=== PATIENT | male | born 1955 | race Two or more races ===

== ENCOUNTER 2016-10-10 16:11 | Emergency (ER) | payer BC, OTHER ==
[2016-10-10] MEDS ORDERED: MORPHINE 4 MG/ML 1ML SYRINGE As Ordered ONE ×3 (16:58→20:16)
[2016-10-10] MEDS ORDERED: KETOROLAC 30 MG/ML VIAL (J1885) As Ordered ONE (16:58)
--- NOTE | 2016-10-10 20:20 | REPUSA ---
CLINICAL HISTORY: Back pain. TECHNIQUE: Fast spin echo T2 and spin echo T1 sequences were obtained in axial and sagittal planes. FINDINGS: The visualized osseous elements are intact with no evidence of fracture or spondylolisthesis. The marrow signal is within normal limits. The conus medullaris and cauda equina are within normal li mits. Straightening of lumbar lordosis is seen, suggesting muscular spasm. Desiccation noted at L3-S1 . Evaluation of individual levels reveals the following: At L5-S1 broad-based posterior disc bulge producing mild mass effect on the ventral sac. Neural marcie talib are mildly narrowed. Canal is borderline stenotic. At L4-L5, an annular tear is noted, with mild broad-based disc bulge producing mild mass effect on th e ventral sac. Neural foramina are mildly narrowed. Canal is patent. Remaining levels demonstrate no significant disc bulge or herniation. IMPRESSION: 1. Straightening of lumbar lordosis, suggesting muscular spasm. 2. At L5-S1 broad-based posterior disc bulge producing mild mass effect on the ventral sac. Neural fo ramina are mildly narrowed. Canal is borderline stenotic. 3. At L4-L5, an annular tear is noted, with mild broad-based disc bulge producing mild mass effect on the ventral sac. Neural foramina are mildly narrowed. Canal is patent Thank you for your kind referral of this patient.
[2016-10-10] MEDS ORDERED: NORCO 5/325MG TABLET (BULK) As Ordered ONE (21:01)
--- NOTE | 2016-10-10 21:21 | EDDOCDS ---
Nurse's Notes [facility] Name: Didier Tinoco Age: 61 yrs Sex: Male : 1955 Arrival Date: 10/10/2016 Time: 16:11 Bed 18 Private MD: Dave Lara Diagnosis: Low back pain-with radicular pain Presentation: 10/10 16:18 Presenting complaint: EMS states: history of lumbar disc, pain has increased. Pain into kr3 left leg. Seen by PCP during past week. Acute neurological deficits are not present. Mechanism of Injury: No Mechanism of Injury. Adult Sepsis Screening: The patient does not have new or worsening altered mentation. Patient's respiratory rate is less than 22. Systolic blood pressure is greater than 100. Patient has a qSOFA score of 0- Negative Sepsis Screen. Suicide/Homicide risk assessment- the patient denies having any suicidal and/or homicidal ideations and does not present with any other emotional, behavioral or mental health complaints. Status: Patient is not a pest control service technician or dependent. Transition of care: patient was not received from another setting of care. 16:18 Method Of Arrival: Ambulance kr3 16:18 Acuity: CAMI Level 4 kr3 17:31 Acuity level changed due to complexity of care. jf3 17:31 Acuity: CAMI Level 3 jf3 Triage Assessment: 16:26 General: Appears in no apparent distress, comfortable, Behavior is cooperative. Pain: kr3 Location: left low back into left hip and left leg Pain currently is 6 out of 10 on a pain scale. The patient is triaged at the bedside. See Assessment in Nurses Notes section of ED record. Respiratory: Respiratory effort is even, unlabored. : Denies incontinence. Derm: Skin is normal. Musculoskeletal: Reports unable to weight bear left leg since this AM. 21:18 Pt Declines HIV testing. jf3 Historical: - Allergies: PENICILLINS; - Home Meds: 1. metformin 850 mg oral tab 2 times per day 2. metoprolol tartrate 50 mg Oral tab once daily 3. atorvastatin 20 mg oral tab 1 tab once daily 4. levothyroxine 25 mcg Oral cap 1 cap once daily 5. Vitamin D Oral 2000 units daily 6. multivitamin Oral tab daily 7. hydrocodone-acetaminophen 5-325 mg Oral tab as needed 8. Aleve Unknown Oral as needed - PMHx: Hypertension; Diabetes - NIDDM: controlled; Thyroid problem; Chronic Low Back Pain; - PSHx: nose surgery; - Social history: Smoking status: Patient states was never smoker of tobacco. No barriers to communication noted, The patient speaks fluent Korean, Speaks appropriately for age. - Family history: Not pertinent. - : The pt / caregiver states he / she is not on anticoagulants. Home medication list is obtained from the patient. - Exposure Risk Screening:: None identified. Screenin:00 Screening information is obtained from the patient. Fall risk: No risks identified. jf3 Assistance ADL's: requires no assistance with activities of daily living. Abuse/DV Screen: The patient / caregiver reports he/she is: not in a situation that causes fear, pain or injury. Nutritional screening: No deficits noted. Advance Directives: There is no active DNR order. home support is adequate. Assessment: 17:00 Adult Sepsis Screening: The patient does not have new or worsening altered mentation. jf3 Patient's respiratory rate is less than 22. Systolic blood pressure is greater than 100. Patient has a qSOFA score of 0- Negative Sepsis Screen. General: Appears uncomfortable, Behavior is cooperative. Pain: Location: left hip, back, buttocks and left leg Pain currently is 6 out of 10 on a pain scale. Neurological: Level of Consciousness is awake, alert, Oriented to person, place, time. Cardiovascular: Capillary refill < 3 seconds Heart tones S1 S2 present Chest pain is denied. Respiratory: Airway is patent Respiratory effort is even, unlabored, Respiratory pattern is regular, symmetrical, Breath sounds are clear bilaterally. Denies shortness of breath. GI: Abdomen is non- distended Bowel sounds present X 4 quads. Abd is soft and non tender X 4 quads. : Denies inability to void, incontinence, urinary frequency, urgency. Derm: Skin is pink, warm & dry. 18:00 General: Appears in no apparent distress, comfortable, Behavior is cooperative. jf3 General: Respirations easy and unlabored. Call light in reach. Will continue to monitor. Pain: Pain currently is 3 out of 10 on a pain scale. 19:00 General: Appears in no apparent distress, comfortable, Behavior is cooperative. jf3 General: Resting supine on stretcher. respirations easy and unlabored. Will continue to monitor. Pain: Pain currently is 2 out of 10 on a pain scale. 20:00 General: Appears in no apparent distress, comfortable, Behavior is cooperative, Pt jf3 resting supine on stretcher. Respirations easy and unlabored. Will continue to monitor. 21:16 Adult Sepsis Screening: The patient does not have new or worsening altered mentation. jf3 Patient's respiratory rate is less than 22. Systolic blood pressure is greater than 100. Patient has a qSOFA score of 0- Negative Sepsis Screen. General: Appears in no apparent distress, comfortable, Behavior is cooperative. General: Pt states pain is 0/10 after latest dose of pain medication. Pain: Pain currently is 0 out of 10 on a pain scale. Neurological: Level of Consciousness is awake, alert, Oriented to person, place, time. Cardiovascular: Capillary refill < 3 seconds Chest pain is denied. Respiratory: Airway is patent Respiratory effort is even, unlabored, Respiratory pattern is regular, symmetrical. Derm: Skin is pink, warm & dry. Vital Signs: 16:24 BP 157 / 64; Pulse 83; Resp 20; Temp 98.6(O); Pulse Ox 95% on R/A; Weight 108.86 kg jmv (R); Height 5 ft. 10 in. (177.80 cm) (R); Pain 6/10; 16:52 BP 162 / 83 (auto/); jf3 16:53 Pulse 78 MON; Pulse Ox 94% ; jf3 17:07 BP 160 / 86 (auto/); jf3 17:07 Pulse 78 MON; Pulse Ox 95% ; jf3 17:22 BP 140 / 63 (auto/); jf3 17:22 Pulse 76 MON; Pulse Ox 94% ; jf3 17:37 BP 136 / 64 (auto/); jf3 17:37 Pulse 76 MON; Pulse Ox 95% ; jf3 17:52 BP 137 / 69 (auto/); jf3 17:52 Pulse 72 MON; Pulse Ox 95% ; jf3 17:55 BP 140 / 66 (auto/); jf3 17:55 Pulse 72 MON; Pulse Ox 96% ; jf3 17:58 BP 140 / 66; Pulse 75; Resp 16; Pulse Ox 96% on 2 lpm NC; Pain 3/10; jf3 18:07 BP 142 / 71 (auto/); jf3 18:07 Pulse 72 MON; Pulse Ox 96% ; jf3 18:21 Pulse 72 MON; Pulse Ox 95% ; jf3 18:22 BP 137 / 68 (auto/); jf3 20:36 BP 126 / 64; Pulse 76; Resp 18; Temp 98.4(TE); Pulse Ox 96% on R/A; Pain 0/10; layla 16:24 Body Mass Index 34.44 (108.86 kg, 177.80 cm) jmv 16:24 PT states that when he is not moving his pain is a 6/10. when he moves and or sits up jmv he is a 10/10 on the pain scale ED Course: 16:12 Patient visited by Agnes Lombardi PCA. ar3 16:12 Dave Lara is Private Physician. ar3 16:12 Patient moved to Waiting ar3 16:12 Patient moved to 18 ar3 16:19 Triage Initiated kr3 16:26 Patient visited by lAex Solomon PCA. jmv 16:26 Pt greeted and oriented to ED. Patient advised of names of staff involved in care, [facility] location of call love, wait times and NPO status. Accompanied by Significant Other, Patient has correct armband on for positive identification. Placed in gown. Bed in low position. Call light in reach. Side rails up X2. Pulse ox on. NIBP on. 16:33 Olivia Munson MD is Attending Physician. sd1 16:33 Patient visited by Olivia Munson MD. sd1 17:00 The patient / caregiver is instructed regarding the plan of care and ED course. jf3 17:00 Inserted saline lock: 20 gauge in left antecubital area The patient tolerated the jf3 procedure well. No procedures done that require assistance. 17:06 [facility] Payment Agreement was scanned into [employer] and attached to record. gjb 17:30 Patient visited by Umer Kirkland RN. jf3 18:33 Patient moved to MRI ld5 18:56 Patient visited by Umer Kirkland RN. jf3 19:13 Attending Physician role handed off by Olivia Munson MD cs11 19:13 Dylon Ballard DO is Attending Physician. cs11 19:14 Patient moved to 18 ml3 19:28 Patient visited by Umer Kirkland RN. jf3 20:31 Patient visited by Alicia Kyle PCA. layla 20:33 Elio Westfall is Referral Physician. cs11 20:33 Referral Physician role handed off by Elio Westfall cs11 20:33 Garo French is Referral Physician. cs11 20:36 Patient visited by Alicia Kyle PCA. layla 20:36 -MRI-Spine, Lumbar without contrast Returned. EDMS 21:16 Discontinued IV lock intact, bleeding controlled, pressure dressing applied, No jf3 redness/swelling at site. Administered Medications: 17:07 Drug: ketorolac 30 mg [ketorolac 30 mg/mL (1 mL) injection solution (1 mL)] Route: IVP; jf3 Site: left antecubital; 17:58 Follow up: Response: Pain is decreased jf3 17:11 Drug: Diazepam 5 mg [diazepam 5 mg/mL injection syringe (1 mL)] Route: IVP; Site: left jf3 antecubital; 17:58 Follow up: Response: Pain is decreased jf3 17:16 Drug: morphine 4 mg [morphine 4 mg/mL intravenous cartridge (1 mL)] Route: IVP; Site: jf3 left antecubital; 17:58 Follow up: BP 140 / 66; Pulse 75 bpm; Resp 16 bpm; Pulse Ox 96% 2 lpm Nasal Cannula; jf3 Pain 3/10 Adult 18:06 Drug: morphine 4 mg [morphine 4 mg/mL intravenous cartridge (1 mL)] Route: IVP; Site: jf3 left antecubital; 20:19 Drug: morphine 4 mg [morphine 4 mg/mL intravenous cartridge (1 mL)] Route: IVP; Site: jf3 left antecubital; 21:20 Follow up: Response: Pain is decreased jf3 21:19 Drug: HYDROcodone-acetaminophen 4 pack- 1 packets [hydrocodone 5 mg-acetaminophen 325 jf3 mg tablet (1 tabs)] {Co-Signature: mb9 (Jeremiah Terry RN).} {Note: Dispensed home with pt by physician..} Route: PO; Order Results: Radiology Order: -MRI-Spine, Lumbar without contrast Test: -MRI-Spine, Lumbar without contrast REASON FOR EXAMINATION: pain radicular left leg paresthesia; ; CLINICAL HISTORY: Back pain.; TECHNIQUE: Fast spin echo T2 and spin echo T1 sequences were obtained in axial and sagittal planes.; FINDINGS:; The visualized osseous elements are intact with no evidence of fracture or spondylolisthesis.; The marrow signal is within normal limits. The conus medullaris and cauda equina are within normal li; mits. Straightening of lumbar lordosis is seen, suggesting muscular spasm. Desiccation noted at L3-S1; .; Evaluation of individual levels reveals the following:; At L5-S1 broad-based posterior disc bulge producing mild mass effect on the ventral sac. Neural marcie; talib are mildly narrowed. Canal is borderline stenotic.; At L4-L5, an annular tear is noted, with mild broad-based disc bulge producing mild mass effect on th; e ventral sac. Neural foramina are mildly narrowed. Canal is patent.; Remaining levels demonstrate no significant disc bulge or herniation.; IMPRESSION:; 1. Straightening of lumbar lordosis, suggesting muscular spasm.; 2. At L5-S1 broad-based posterior disc bulge producing mild mass effect on the ventral sac. Neural fo; ramina are mildly narrowed. Canal is borderline stenotic.; 3. At L4-L5, an annular tear is noted, with mild broad-based disc bulge producing mild mass effect on; the ventral sac. Neural foramina are mildly narrowed. Canal is patent; Thank you for your kind referral of this patient.; ; Outcome: 20:33 Discharge ordered by Provider. cs11 21:16 Discharge Assessment: Patient awake, alert and oriented x 3. No cognitive and/or jf3 functional deficits noted. Patient verbalized understanding of disposition instructions. patient administered narcotics - yes. Pt provided with safe discharge. The following High Risk Discharge criteria are identified: None. Discharged to home via wheelchair, with significant other. Condition: good. Discharge instructions given to patient, significant other, Instructed on discharge instructions, follow up and referral plans. medication usage, no driving heavy equipment, Demonstrated understanding of instructions, medications, Pt was receptive of discharge instructions/ teaching. MRI Study completed. Property :Personal belongings accompany Pt. 21:20 Patient left the ED. jf3 Signatures: Dispatcher [employer] EDOlivia Reeder MD MD sd1 Mk Ryan, Customer Retention Specialist Unit ml3 Jaimie Smith RN RN kr3 Agnes Lombardi HELICOPTER DISPATCHER HELICOPTER DISPATCHER ar3 Kymberly Lennon,RN RN ld5 Saroj, Alicia, HELICOPTER DISPATCHER HELICOPTER DISPATCHER layla Dylon Ballard, DO DO cs11 Umer Kirkland,RN RN jf3 Patti Cooney Jose, HELICOPTER DISPATCHER HELICOPTER DISPATCHER jmv Jeremiah Terry RN mb9 Corrections: (The following items were deleted from the chart) 17:58 17:57 BP 140 / 66; Pulse 75 bpm; Resp 16 bpm; Pulse Ox 96% 2 lpm Nasal Cannula jf3 jf3 MTDD
--- NOTE | 2016-10-10 21:21 | EDDOCDS ---
Physician Documentation [facility] Name: Didier Tinoco Age: 61 yrs Sex: Male : 1955 Arrival Date: 10/10/2016 Time: 16:11 Bed 18 Private MD: Dave Lara Disposition: 10/10/16 20:33 Discharged to Home/Self Care. Impression: Low back pain - with radicular pain. - Condition is Stable. - Discharge Instructions: Back Pain, Adult, Back Pain, Adult, [id number]. - Prescriptions for ketorolac 10 mg Oral Tablet - take 1 tablet by ORAL route every 6 hours As needed MDD- 40mg. Up to 5 days total use.; 9 tablet. Valium 5 mg Oral Tablet - take 1 tablet by ORAL route every 8 hours As needed MDD: 3 tabs; 20 tablet. Percocet 5- 325 mg Oral Tablet - take 1 tablet by ORAL route every 6 hours As needed MDD: 4 tabs; 20 tablet. - Medication Reconciliation, Local Pharmacy Hours form. - Follow up: ; When: Call to arrange an appointment. Follow up: Garo French; When: Call to arrange an appointment; Reason: Recheck today's complaints. - Problem is an ongoing problem. - Symptoms have improved. Historical: - Allergies: PENICILLINS; - Home Meds: 1. metformin 850 mg oral tab 2 times per day 2. metoprolol tartrate 50 mg Oral tab once daily 3. atorvastatin 20 mg oral tab 1 tab once daily 4. levothyroxine 25 mcg Oral cap 1 cap once daily 5. Vitamin D Oral 2000 units daily 6. multivitamin Oral tab daily 7. hydrocodone-acetaminophen 5-325 mg Oral tab as needed 8. Aleve Unknown Oral as needed - PMHx: Hypertension; Diabetes - NIDDM: controlled; Thyroid problem; Chronic Low Back Pain; - PSHx: nose surgery; - Social history: Smoking status: Patient states was never smoker of tobacco. No barriers to communication noted, The patient speaks fluent Anguillan, Speaks appropriately for age. - Family history: Not pertinent. - : The pt / caregiver states he / she is not on anticoagulants. Home medication list is obtained from the patient. - Exposure Risk Screening:: None identified. Vital Signs: 10/10 16:24 BP 157 / 64; Pulse 83; Resp 20; Temp 98.6(O); Pulse Ox 95% on R/A; Weight 108.86 kg / jmv 240 lbs (R); Height 5 ft. 10 in. (177.80 cm) (R); Pain 6/10; 16:52 BP 162 / 83 (auto/); jf3 16:53 Pulse 78 MON; Pulse Ox 94% ; jf3 17:07 BP 160 / 86 (auto/); jf3 17:07 Pulse 78 MON; Pulse Ox 95% ; jf3 17:22 BP 140 / 63 (auto/); jf3 17:22 Pulse 76 MON; Pulse Ox 94% ; jf3 17:37 BP 136 / 64 (auto/); jf3 17:37 Pulse 76 MON; Pulse Ox 95% ; jf3 17:52 BP 137 / 69 (auto/); jf3 17:52 Pulse 72 MON; Pulse Ox 95% ; jf3 17:55 BP 140 / 66 (auto/); jf3 17:55 Pulse 72 MON; Pulse Ox 96% ; jf3 17:58 BP 140 / 66; Pulse 75; Resp 16; Pulse Ox 96% on 2 lpm NC; Pain 3/10; jf3 18:07 BP 142 / 71 (auto/); jf3 18:07 Pulse 72 MON; Pulse Ox 96% ; jf3 18:21 Pulse 72 MON; Pulse Ox 95% ; jf3 18:22 BP 137 / 68 (auto/); jf3 20:36 BP 126 / 64; Pulse 76; Resp 18; Temp 98.4(TE); Pulse Ox 96% on R/A; Pain 0/10; layla 16:24 Body Mass Index 34.44 (108.86 kg, 177.80 cm) jmv 16:24 PT states that when he is not moving his pain is a 6/10. when he moves and or sits up [facility] he is a 10/10 on the pain scale MDM: 16:34 Financial registration complete. gjb 16:47 ketorolac 30 mg IVP once ordered. sd1 16:47 Diazepam 5 mg IVP once ordered. sd1 16:48 morphine 4 mg IVP every 15 minutes; Document pain score/vitals after each dose (Hold if sd1 SBP < 90mmHg) x2 ordered. 16:48 IV Saline Lock ordered. sd1 16:48 MRI Screening Tool - Place on chart, inform RN ordered. sd1 16:50 -MRI-Spine, Lumbar without contrast Ordered. EDMS 17:06 [facility] Payment Agreement was scanned into [employer] and attached to record. ellen 17:29 MRI Screening Tool - Place on chart, inform RN complete. jf3 20:12 morphine 4 mg IVP once ordered. cs11 20:39 HYDROcodone-acetaminophen 4 pack- 5 mg-325 mg 1 packets PO Per package directions; cs11 Dispense with patient. 1 po q4h prn for pain ordered. Administered Medications: 17:07 Drug: ketorolac 30 mg [ketorolac 30 mg/mL (1 mL) injection solution (1 mL)] Route: IVP; jf3 Site: left antecubital; 17:58 Follow up: Response: Pain is decreased jf3 17:11 Drug: Diazepam 5 mg [diazepam 5 mg/mL injection syringe (1 mL)] Route: IVP; Site: left jf3 antecubital; 17:58 Follow up: Response: Pain is decreased jf3 17:16 Drug: morphine 4 mg [morphine 4 mg/mL intravenous cartridge (1 mL)] Route: IVP; Site: 3 left antecubital; 17:58 Follow up: BP 140 / 66; Pulse 75 bpm; Resp 16 bpm; Pulse Ox 96% 2 lpm Nasal Cannula; jf3 Pain 3/10 Adult 18:06 Drug: morphine 4 mg [morphine 4 mg/mL intravenous cartridge (1 mL)] Route: IVP; Site: 3 left antecubital; 20:19 Drug: morphine 4 mg [morphine 4 mg/mL intravenous cartridge (1 mL)] Route: IVP; Site: 3 left antecubital; 21:20 Follow up: Response: Pain is decreased jf3 21:19 Drug: HYDROcodone-acetaminophen 4 pack- 1 packets [hydrocodone 5 mg-acetaminophen 325 jf3 mg tablet (1 tabs)] {Co-Signature: mb9 (Jeremiah Terry RN).} {Note: Dispensed home with pt by physician..} Route: PO; Signatures: Dispatcher [employer] EDMS Olivia Munson MD MD sd1 Jaimie Smith RN RN shayy3 Dylon Ballard DO DO cs11 Umer Kirkland RN RN jf3 Patti Cooney RN mb9 The chart was reviewed and I authenticate all verbal orders and agree with the evaluation and treatment provided.Attachments: 17:06 [facility] Payment Agreement ellen MTDD
--- NOTE | 2016-10-12 22:21 | EDDOCDS ---
Physician Documentation [facility] Name: Didier Tinoco Age: 61 yrs Sex: Male : 1955 Arrival Date: 10/10/2016 Time: 16:11 Bed 18 Private MD: Dave Lara Disposition: 10/10/16 20:33 Discharged to Home/Self Care. Impression: Low back pain - with radicular pain. - Condition is Stable. - Discharge Instructions: Back Pain, Adult, Back Pain, Adult, [id number]. - Prescriptions for ketorolac 10 mg Oral Tablet - take 1 tablet by ORAL route every 6 hours As needed MDD- 40mg. Up to 5 days total use.; 9 tablet. Valium 5 mg Oral Tablet - take 1 tablet by ORAL route every 8 hours As needed MDD: 3 tabs; 20 tablet. Percocet 5- 325 mg Oral Tablet - take 1 tablet by ORAL route every 6 hours As needed MDD: 4 tabs; 20 tablet. - Medication Reconciliation, Local Pharmacy Hours form. - Follow up: ; When: Call to arrange an appointment. Follow up: Garo French; When: Call to arrange an appointment; Reason: Recheck today's complaints. - Problem is an ongoing problem. - Symptoms have improved. Historical: - Allergies: PENICILLINS; - Home Meds: 1. metformin 850 mg oral tab 2 times per day 2. metoprolol tartrate 50 mg Oral tab once daily 3. atorvastatin 20 mg oral tab 1 tab once daily 4. levothyroxine 25 mcg Oral cap 1 cap once daily 5. Vitamin D Oral 2000 units daily 6. multivitamin Oral tab daily 7. hydrocodone-acetaminophen 5-325 mg Oral tab as needed 8. Aleve Unknown Oral as needed - PMHx: Hypertension; Diabetes - NIDDM: controlled; Thyroid problem; Chronic Low Back Pain; - PSHx: nose surgery; - Social history: Smoking status: Patient states was never smoker of tobacco. No barriers to communication noted, The patient speaks fluent Cymraes, Speaks appropriately for age. - Family history: Not pertinent. - : The pt / caregiver states he / she is not on anticoagulants. Home medication list is obtained from the patient. - Exposure Risk Screening:: None identified. Vital Signs: 10/10 16:24 BP 157 / 64; Pulse 83; Resp 20; Temp 98.6(O); Pulse Ox 95% on R/A; Weight 108.86 kg / jmv 240 lbs (R); Height 5 ft. 10 in. (177.80 cm) (R); Pain 6/10; 16:52 BP 162 / 83 (auto/); jf3 16:53 Pulse 78 MON; Pulse Ox 94% ; jf3 17:07 BP 160 / 86 (auto/); jf3 17:07 Pulse 78 MON; Pulse Ox 95% ; jf3 17:22 BP 140 / 63 (auto/); jf3 17:22 Pulse 76 MON; Pulse Ox 94% ; jf3 17:37 BP 136 / 64 (auto/); jf3 17:37 Pulse 76 MON; Pulse Ox 95% ; jf3 17:52 BP 137 / 69 (auto/); jf3 17:52 Pulse 72 MON; Pulse Ox 95% ; jf3 17:55 BP 140 / 66 (auto/); jf3 17:55 Pulse 72 MON; Pulse Ox 96% ; jf3 17:58 BP 140 / 66; Pulse 75; Resp 16; Pulse Ox 96% on 2 lpm NC; Pain 3/10; jf3 18:07 BP 142 / 71 (auto/); jf3 18:07 Pulse 72 MON; Pulse Ox 96% ; jf3 18:21 Pulse 72 MON; Pulse Ox 95% ; jf3 18:22 BP 137 / 68 (auto/); jf3 20:36 BP 126 / 64; Pulse 76; Resp 18; Temp 98.4(TE); Pulse Ox 96% on R/A; Pain 0/10; layla 16:24 Body Mass Index 34.44 (108.86 kg, 177.80 cm) jmv 16:24 PT states that when he is not moving his pain is a 6/10. when he moves and or sits up [facility] he is a 10/10 on the pain scale MDM: 16:34 Financial registration complete. gjb 16:47 ketorolac 30 mg IVP once ordered. sd1 16:47 Diazepam 5 mg IVP once ordered. sd1 16:48 morphine 4 mg IVP every 15 minutes; Document pain score/vitals after each dose (Hold if sd1 SBP < 90mmHg) x2 ordered. 16:48 IV Saline Lock ordered. sd1 16:48 MRI Screening Tool - Place on chart, inform RN ordered. sd1 16:50 -MRI-Spine, Lumbar without contrast Ordered. EDMS 17:06 [facility] Payment Agreement was scanned into [employer] and attached to record. gjb 17:29 MRI Screening Tool - Place on chart, inform RN complete. jf3 20:12 morphine 4 mg IVP once ordered. cs11 20:39 HYDROcodone-acetaminophen 4 pack- 5 mg-325 mg 1 packets PO Per package directions; cs11 Dispense with patient. 1 po q4h prn for pain ordered. 21:48 T-Sheet-- Draft Copy was scanned into [employer] and attached to record. klr 02 10:22 Radiology Report was scanned into [employer] and attached to record. gb Administered Medications: 10/10 17:07 Drug: ketorolac 30 mg [ketorolac 30 mg/mL (1 mL) injection solution (1 mL)] Route: IVP; jf3 Site: left antecubital; 17:58 Follow up: Response: Pain is decreased jf3 17:11 Drug: Diazepam 5 mg [diazepam 5 mg/mL injection syringe (1 mL)] Route: IVP; Site: left 3 antecubital; 17:58 Follow up: Response: Pain is decreased jf3 17:16 Drug: morphine 4 mg [morphine 4 mg/mL intravenous cartridge (1 mL)] Route: IVP; Site: 3 left antecubital; 17:58 Follow up: BP 140 / 66; Pulse 75 bpm; Resp 16 bpm; Pulse Ox 96% 2 lpm Nasal Cannula; jf3 Pain 3/10 Adult 18:06 Drug: morphine 4 mg [morphine 4 mg/mL intravenous cartridge (1 mL)] Route: IVP; Site: 3 left antecubital; 20:19 Drug: morphine 4 mg [morphine 4 mg/mL intravenous cartridge (1 mL)] Route: IVP; Site: 3 left antecubital; 21:20 Follow up: Response: Pain is decreased jf3 21:19 Drug: HYDROcodone-acetaminophen 4 pack- 1 packets [hydrocodone 5 mg-acetaminophen 325 jf3 mg tablet (1 tabs)] {Co-Signature: [email or web address] (Jeremiah Terry RN).} {Note: Dispensed home with pt by physician..} Route: PO; Signatures: Dispatcher [employer] EDMS Jeimy Olivia, MD MD sd1 Magali Frias, Reg Reg gb Jaimie Smith,RN RN kr3 Dylon Ballard, DO [place] cs11 Umer Kirkland RN RN jf3 Patti Cooney Kathie klr Jeremiah Terry RN mb9 The chart was reviewed and I authenticate all verbal orders and agree with the evaluation and treatment provided.Attachments: 17:06 [facility] Payment Agreement ellen 21:48 T-Sheet-- Draft Copy klr Chart Complete MTDD
--- NOTE | 2016-10-12 22:21 | EDDOCDS ---
Physician Documentation [facility] Name: Didier Tinoco Age: 61 yrs Sex: Male : 1955 Arrival Date: 10/10/2016 Time: 16:11 Bed 18 Private MD: Dave Lara Disposition: 10/10/16 20:33 Discharged to Home/Self Care. Impression: Low back pain - with radicular pain. - Condition is Stable. - Discharge Instructions: Back Pain, Adult, Back Pain, Adult, [id number]. - Prescriptions for ketorolac 10 mg Oral Tablet - take 1 tablet by ORAL route every 6 hours As needed MDD- 40mg. Up to 5 days total use.; 9 tablet. Valium 5 mg Oral Tablet - take 1 tablet by ORAL route every 8 hours As needed MDD: 3 tabs; 20 tablet. Percocet 5- 325 mg Oral Tablet - take 1 tablet by ORAL route every 6 hours As needed MDD: 4 tabs; 20 tablet. - Medication Reconciliation, Local Pharmacy Hours form. - Follow up: ; When: Call to arrange an appointment. Follow up: Garo French; When: Call to arrange an appointment; Reason: Recheck today's complaints. - Problem is an ongoing problem. - Symptoms have improved. Historical: - Allergies: PENICILLINS; - Home Meds: 1. metformin 850 mg oral tab 2 times per day 2. metoprolol tartrate 50 mg Oral tab once daily 3. atorvastatin 20 mg oral tab 1 tab once daily 4. levothyroxine 25 mcg Oral cap 1 cap once daily 5. Vitamin D Oral 2000 units daily 6. multivitamin Oral tab daily 7. hydrocodone-acetaminophen 5-325 mg Oral tab as needed 8. Aleve Unknown Oral as needed - PMHx: Hypertension; Diabetes - NIDDM: controlled; Thyroid problem; Chronic Low Back Pain; - PSHx: nose surgery; - Social history: Smoking status: Patient states was never smoker of tobacco. No barriers to communication noted, The patient speaks fluent Croatian, Speaks appropriately for age. - Family history: Not pertinent. - : The pt / caregiver states he / she is not on anticoagulants. Home medication list is obtained from the patient. - Exposure Risk Screening:: None identified. Vital Signs: 10/10 16:24 BP 157 / 64; Pulse 83; Resp 20; Temp 98.6(O); Pulse Ox 95% on R/A; Weight 108.86 kg / jmv 240 lbs (R); Height 5 ft. 10 in. (177.80 cm) (R); Pain 6/10; 16:52 BP 162 / 83 (auto/); jf3 16:53 Pulse 78 MON; Pulse Ox 94% ; jf3 17:07 BP 160 / 86 (auto/); jf3 17:07 Pulse 78 MON; Pulse Ox 95% ; jf3 17:22 BP 140 / 63 (auto/); jf3 17:22 Pulse 76 MON; Pulse Ox 94% ; jf3 17:37 BP 136 / 64 (auto/); jf3 17:37 Pulse 76 MON; Pulse Ox 95% ; jf3 17:52 BP 137 / 69 (auto/); jf3 17:52 Pulse 72 MON; Pulse Ox 95% ; jf3 17:55 BP 140 / 66 (auto/); jf3 17:55 Pulse 72 MON; Pulse Ox 96% ; jf3 17:58 BP 140 / 66; Pulse 75; Resp 16; Pulse Ox 96% on 2 lpm NC; Pain 3/10; jf3 18:07 BP 142 / 71 (auto/); jf3 18:07 Pulse 72 MON; Pulse Ox 96% ; jf3 18:21 Pulse 72 MON; Pulse Ox 95% ; jf3 18:22 BP 137 / 68 (auto/); jf3 20:36 BP 126 / 64; Pulse 76; Resp 18; Temp 98.4(TE); Pulse Ox 96% on R/A; Pain 0/10; layla 16:24 Body Mass Index 34.44 (108.86 kg, 177.80 cm) jmv 16:24 PT states that when he is not moving his pain is a 6/10. when he moves and or sits up [facility] he is a 10/10 on the pain scale MDM: 16:34 Financial registration complete. gjb 16:47 ketorolac 30 mg IVP once ordered. sd1 16:47 Diazepam 5 mg IVP once ordered. sd1 16:48 morphine 4 mg IVP every 15 minutes; Document pain score/vitals after each dose (Hold if sd1 SBP < 90mmHg) x2 ordered. 16:48 IV Saline Lock ordered. sd1 16:48 MRI Screening Tool - Place on chart, inform RN ordered. sd1 16:50 -MRI-Spine, Lumbar without contrast Ordered. EDMS 17:06 [facility] Payment Agreement was scanned into [employer] and attached to record. gjb 17:29 MRI Screening Tool - Place on chart, inform RN complete. jf3 20:12 morphine 4 mg IVP once ordered. cs11 20:39 HYDROcodone-acetaminophen 4 pack- 5 mg-325 mg 1 packets PO Per package directions; cs11 Dispense with patient. 1 po q4h prn for pain ordered. 21:48 T-Sheet-- Draft Copy was scanned into [employer] and attached to record. klr 02 10:22 Radiology Report was scanned into [employer] and attached to record. gb Administered Medications: 10/10 17:07 Drug: ketorolac 30 mg [ketorolac 30 mg/mL (1 mL) injection solution (1 mL)] Route: IVP; jf3 Site: left antecubital; 17:58 Follow up: Response: Pain is decreased jf3 17:11 Drug: Diazepam 5 mg [diazepam 5 mg/mL injection syringe (1 mL)] Route: IVP; Site: left 3 antecubital; 17:58 Follow up: Response: Pain is decreased jf3 17:16 Drug: morphine 4 mg [morphine 4 mg/mL intravenous cartridge (1 mL)] Route: IVP; Site: 3 left antecubital; 17:58 Follow up: BP 140 / 66; Pulse 75 bpm; Resp 16 bpm; Pulse Ox 96% 2 lpm Nasal Cannula; jf3 Pain 3/10 Adult 18:06 Drug: morphine 4 mg [morphine 4 mg/mL intravenous cartridge (1 mL)] Route: IVP; Site: 3 left antecubital; 20:19 Drug: morphine 4 mg [morphine 4 mg/mL intravenous cartridge (1 mL)] Route: IVP; Site: 3 left antecubital; 21:20 Follow up: Response: Pain is decreased jf3 21:19 Drug: HYDROcodone-acetaminophen 4 pack- 1 packets [hydrocodone 5 mg-acetaminophen 325 jf3 mg tablet (1 tabs)] {Co-Signature: [email or web address] (Jeremiah Terry RN).} {Note: Dispensed home with pt by physician..} Route: PO; Signatures: Dispatcher [employer] EDMS Jeimy Olivia, MD MD sd1 Magali Frias, Reg Reg gb Jaimie Smith,RN RN kr3 Dylon Ballard, DO [place] cs11 Umer Kirkland RN RN jf3 Patti Cooney Kathie klr Jeremiah Terry RN mb9 The chart was reviewed and I authenticate all verbal orders and agree with the evaluation and treatment provided.Attachments: 17:06 [facility] Payment Agreement ellen 21:48 T-Sheet-- Draft Copy klr Chart Complete MTDD
--- NOTE | 2016-10-12 22:21 | EDDOCDS ---
Nurse's Notes [facility] Name: Didier Tinoco Age: 61 yrs Sex: Male : 1955 Arrival Date: 10/10/2016 Time: 16:11 Bed 18 Private MD: Dave Lara Diagnosis: Low back pain-with radicular pain Presentation: 10/10 16:18 Presenting complaint: EMS states: history of lumbar disc, pain has increased. Pain into kr3 left leg. Seen by PCP during past week. Acute neurological deficits are not present. Mechanism of Injury: No Mechanism of Injury. Adult Sepsis Screening: The patient does not have new or worsening altered mentation. Patient's respiratory rate is less than 22. Systolic blood pressure is greater than 100. Patient has a qSOFA score of 0- Negative Sepsis Screen. Suicide/Homicide risk assessment- the patient denies having any suicidal and/or homicidal ideations and does not present with any other emotional, behavioral or mental health complaints. Status: Patient is not a manager field services or dependent. Transition of care: patient was not received from another setting of care. 16:18 Method Of Arrival: Ambulance kr3 16:18 Acuity: CAMI Level 4 kr3 17:31 Acuity level changed due to complexity of care. jf3 17:31 Acuity: CAMI Level 3 jf3 Triage Assessment: 16:26 General: Appears in no apparent distress, comfortable, Behavior is cooperative. Pain: kr3 Location: left low back into left hip and left leg Pain currently is 6 out of 10 on a pain scale. The patient is triaged at the bedside. See Assessment in Nurses Notes section of ED record. Respiratory: Respiratory effort is even, unlabored. : Denies incontinence. Derm: Skin is normal. Musculoskeletal: Reports unable to weight bear left leg since this AM. 21:18 Pt Declines HIV testing. jf3 Historical: - Allergies: PENICILLINS; - Home Meds: 1. metformin 850 mg oral tab 2 times per day 2. metoprolol tartrate 50 mg Oral tab once daily 3. atorvastatin 20 mg oral tab 1 tab once daily 4. levothyroxine 25 mcg Oral cap 1 cap once daily 5. Vitamin D Oral 2000 units daily 6. multivitamin Oral tab daily 7. hydrocodone-acetaminophen 5-325 mg Oral tab as needed 8. Aleve Unknown Oral as needed - PMHx: Hypertension; Diabetes - NIDDM: controlled; Thyroid problem; Chronic Low Back Pain; - PSHx: nose surgery; - Social history: Smoking status: Patient states was never smoker of tobacco. No barriers to communication noted, The patient speaks fluent Kinyarwanda, Speaks appropriately for age. - Family history: Not pertinent. - : The pt / caregiver states he / she is not on anticoagulants. Home medication list is obtained from the patient. - Exposure Risk Screening:: None identified. Screenin:00 Screening information is obtained from the patient. Fall risk: No risks identified. jf3 Assistance ADL's: requires no assistance with activities of daily living. Abuse/DV Screen: The patient / caregiver reports he/she is: not in a situation that causes fear, pain or injury. Nutritional screening: No deficits noted. Advance Directives: There is no active DNR order. home support is adequate. Assessment: 17:00 Adult Sepsis Screening: The patient does not have new or worsening altered mentation. jf3 Patient's respiratory rate is less than 22. Systolic blood pressure is greater than 100. Patient has a qSOFA score of 0- Negative Sepsis Screen. General: Appears uncomfortable, Behavior is cooperative. Pain: Location: left hip, back, buttocks and left leg Pain currently is 6 out of 10 on a pain scale. Neurological: Level of Consciousness is awake, alert, Oriented to person, place, time. Cardiovascular: Capillary refill < 3 seconds Heart tones S1 S2 present Chest pain is denied. Respiratory: Airway is patent Respiratory effort is even, unlabored, Respiratory pattern is regular, symmetrical, Breath sounds are clear bilaterally. Denies shortness of breath. GI: Abdomen is non- distended Bowel sounds present X 4 quads. Abd is soft and non tender X 4 quads. : Denies inability to void, incontinence, urinary frequency, urgency. Derm: Skin is pink, warm & dry. 18:00 General: Appears in no apparent distress, comfortable, Behavior is cooperative. jf3 General: Respirations easy and unlabored. Call light in reach. Will continue to monitor. Pain: Pain currently is 3 out of 10 on a pain scale. 19:00 General: Appears in no apparent distress, comfortable, Behavior is cooperative. jf3 General: Resting supine on stretcher. respirations easy and unlabored. Will continue to monitor. Pain: Pain currently is 2 out of 10 on a pain scale. 20:00 General: Appears in no apparent distress, comfortable, Behavior is cooperative, Pt jf3 resting supine on stretcher. Respirations easy and unlabored. Will continue to monitor. 21:16 Adult Sepsis Screening: The patient does not have new or worsening altered mentation. jf3 Patient's respiratory rate is less than 22. Systolic blood pressure is greater than 100. Patient has a qSOFA score of 0- Negative Sepsis Screen. General: Appears in no apparent distress, comfortable, Behavior is cooperative. General: Pt states pain is 0/10 after latest dose of pain medication. Pain: Pain currently is 0 out of 10 on a pain scale. Neurological: Level of Consciousness is awake, alert, Oriented to person, place, time. Cardiovascular: Capillary refill < 3 seconds Chest pain is denied. Respiratory: Airway is patent Respiratory effort is even, unlabored, Respiratory pattern is regular, symmetrical. Derm: Skin is pink, warm & dry. Vital Signs: 16:24 BP 157 / 64; Pulse 83; Resp 20; Temp 98.6(O); Pulse Ox 95% on R/A; Weight 108.86 kg jmv (R); Height 5 ft. 10 in. (177.80 cm) (R); Pain 6/10; 16:52 BP 162 / 83 (auto/); jf3 16:53 Pulse 78 MON; Pulse Ox 94% ; jf3 17:07 BP 160 / 86 (auto/); jf3 17:07 Pulse 78 MON; Pulse Ox 95% ; jf3 17:22 BP 140 / 63 (auto/); jf3 17:22 Pulse 76 MON; Pulse Ox 94% ; jf3 17:37 BP 136 / 64 (auto/); jf3 17:37 Pulse 76 MON; Pulse Ox 95% ; jf3 17:52 BP 137 / 69 (auto/); jf3 17:52 Pulse 72 MON; Pulse Ox 95% ; jf3 17:55 BP 140 / 66 (auto/); jf3 17:55 Pulse 72 MON; Pulse Ox 96% ; jf3 17:58 BP 140 / 66; Pulse 75; Resp 16; Pulse Ox 96% on 2 lpm NC; Pain 3/10; jf3 18:07 BP 142 / 71 (auto/); jf3 18:07 Pulse 72 MON; Pulse Ox 96% ; jf3 18:21 Pulse 72 MON; Pulse Ox 95% ; jf3 18:22 BP 137 / 68 (auto/); jf3 20:36 BP 126 / 64; Pulse 76; Resp 18; Temp 98.4(TE); Pulse Ox 96% on R/A; Pain 0/10; layla 16:24 Body Mass Index 34.44 (108.86 kg, 177.80 cm) jmv 16:24 PT states that when he is not moving his pain is a 6/10. when he moves and or sits up jmv he is a 10/10 on the pain scale ED Course: 16:12 Patient visited by Agnes Lombardi PCA. ar3 16:12 Dave Lara is Private Physician. ar3 16:12 Patient moved to Waiting ar3 16:12 Patient moved to 18 ar3 16:19 Triage Initiated kr3 16:26 Patient visited by Alex Solomon PCA. jmv 16:26 Pt greeted and oriented to ED. Patient advised of names of staff involved in care, [facility] location of call love, wait times and NPO status. Accompanied by Significant Other, Patient has correct armband on for positive identification. Placed in gown. Bed in low position. Call light in reach. Side rails up X2. Pulse ox on. NIBP on. 16:33 Olivia Munson MD is Attending Physician. sd1 16:33 Patient visited by Olivia Munson MD. sd1 17:00 The patient / caregiver is instructed regarding the plan of care and ED course. jf3 17:00 Inserted saline lock: 20 gauge in left antecubital area The patient tolerated the jf3 procedure well. No procedures done that require assistance. 17:06 [facility] Payment Agreement was scanned into [employer] and attached to record. gjb 17:30 Patient visited by Umer Kirkland RN. jf3 18:33 Patient moved to MRI ld5 18:56 Patient visited by Umer Kirkland RN. jf3 19:13 Attending Physician role handed off by Olivia Munson MD cs11 19:13 Dylon Ballard DO is Attending Physician. cs11 19:14 Patient moved to 18 ml3 19:28 Patient visited by Umer Kirkland RN. jf3 20:31 Patient visited by Alicia Kyle PCA. layla 20:33 Elio Westfall is Referral Physician. cs11 20:33 Referral Physician role handed off by Elio Westfall cs11 20:33 Garo French is Referral Physician. cs11 20:36 Patient visited by Alicia Kyle PCA. layla 20:36 -MRI-Spine, Lumbar without contrast Returned. EDMS 21:16 Discontinued IV lock intact, bleeding controlled, pressure dressing applied, No jf3 redness/swelling at site. 21:48 T-Sheet-- Draft Copy was scanned into [employer] and attached to record. klr 02 10:22 Radiology Report was scanned into [employer] and attached to record. gb Administered Medications: 10/10 17:07 Drug: ketorolac 30 mg [ketorolac 30 mg/mL (1 mL) injection solution (1 mL)] Route: IVP; jf3 Site: left antecubital; 17:58 Follow up: Response: Pain is decreased jf3 17:11 Drug: Diazepam 5 mg [diazepam 5 mg/mL injection syringe (1 mL)] Route: IVP; Site: left jf3 antecubital; 17:58 Follow up: Response: Pain is decreased jf3 17:16 Drug: morphine 4 mg [morphine 4 mg/mL intravenous cartridge (1 mL)] Route: IVP; Site: jf3 left antecubital; 17:58 Follow up: BP 140 / 66; Pulse 75 bpm; Resp 16 bpm; Pulse Ox 96% 2 lpm Nasal Cannula; jf3 Pain 3/10 Adult 18:06 Drug: morphine 4 mg [morphine 4 mg/mL intravenous cartridge (1 mL)] Route: IVP; Site: jf3 left antecubital; 20:19 Drug: morphine 4 mg [morphine 4 mg/mL intravenous cartridge (1 mL)] Route: IVP; Site: jf3 left antecubital; 21:20 Follow up: Response: Pain is decreased jf3 21:19 Drug: HYDROcodone-acetaminophen 4 pack- 1 packets [hydrocodone 5 mg-acetaminophen 325 jf3 mg tablet (1 tabs)] {Co-Signature: [email or web address] (Jeremiah Terry RN).} {Note: Dispensed home with pt by physician..} Route: PO; Order Results: Radiology Order: -MRI-Spine, Lumbar without contrast Test: -MRI-Spine, Lumbar without contrast REASON FOR EXAMINATION: pain radicular left leg paresthesia; ; CLINICAL HISTORY: Back pain.; TECHNIQUE: Fast spin echo T2 and spin echo T1 sequences were obtained in axial and sagittal planes.; FINDINGS:; The visualized osseous elements are intact with no evidence of fracture or spondylolisthesis.; The marrow signal is within normal limits. The conus medullaris and cauda equina are within normal li; mits. Straightening of lumbar lordosis is seen, suggesting muscular spasm. Desiccation noted at L3-S1; .; Evaluation of individual levels reveals the following:; At L5-S1 broad-based posterior disc bulge producing mild mass effect on the ventral sac. Neural marcie; talib are mildly narrowed. Canal is borderline stenotic.; At L4-L5, an annular tear is noted, with mild broad-based disc bulge producing mild mass effect on th; e ventral sac. Neural foramina are mildly narrowed. Canal is patent.; Remaining levels demonstrate no significant disc bulge or herniation.; IMPRESSION:; 1. Straightening of lumbar lordosis, suggesting muscular spasm.; 2. At L5-S1 broad-based posterior disc bulge producing mild mass effect on the ventral sac. Neural fo; ramina are mildly narrowed. Canal is borderline stenotic.; 3. At L4-L5, an annular tear is noted, with mild broad-based disc bulge producing mild mass effect on; the ventral sac. Neural foramina are mildly narrowed. Canal is patent; Thank you for your kind referral of this patient.; ; Outcome: 20:33 Discharge ordered by Provider. cs11 21:16 Discharge Assessment: Patient awake, alert and oriented x 3. No cognitive and/or jf3 functional deficits noted. Patient verbalized understanding of disposition instructions. patient administered narcotics - yes. Pt provided with safe discharge. The following High Risk Discharge criteria are identified: None. Discharged to home via wheelchair, with significant other. Condition: good. Discharge instructions given to patient, significant other, Instructed on discharge instructions, follow up and referral plans. medication usage, no driving heavy equipment, Demonstrated understanding of instructions, medications, Pt was receptive of discharge instructions/ teaching. MRI Study completed. Property :Personal belongings accompany Pt. 21:20 Patient left the ED. jf3 Signatures: Dispatcher [employer] EDMS Olivia Munson MD MD sd1 Altagracia, Magali, Reg Reg gb Connor, Mk, Bone Glue [employer] Unit ml3 Jaimie Smith,RN RN kr3 Agnes Lombardi, PUBLIC HEALTH SERVICE OFFICER PUBLIC HEALTH SERVICE OFFICER ar3 Kymberly Lennon RN RN ld5 Saroj, Alicia, PUBLIC HEALTH SERVICE OFFICER PUBLIC HEALTH SERVICE OFFICER layla Dylon Ballard, DO DO cs11 Umer KirklandRN RN jf3 Patti Cooney Kathie klr Vega, Jose, PUBLIC HEALTH SERVICE OFFICER PUBLIC HEALTH SERVICE OFFICER jmv Jeremiah Terry RN mb9 Corrections: (The following items were deleted from the chart) 17:58 17:57 BP 140 / 66; Pulse 75 bpm; Resp 16 bpm; Pulse Ox 96% 2 lpm Nasal Cannula jf3 jf3 Chart Complete MTDD
== END 2016-10-10 21:20 | disposition home or self-care (01) ==
LOC: M ED 16:11
DX: M51.36 Other intervertebral disc degeneration, lumbar region (principal); M54.5 Low back pain; G89.29 Other chronic pain; I10 Essential (primary) hypertension; E11.9 Type 2 diabetes mellitus without complications; E07.9 Disorder of thyroid, unspecified; Z79.899 Other long term (current) drug therapy; Z88.0 Allergy status to penicillin
CPT/HCPCS: 72148; 96374; 96375; 96376; 99284; J1885; J3360

== ENCOUNTER → 2016-10-14 | Outpatient (CLI) | payer BC ==
--- NOTE | 2016-10-16 23:27 | ECWPNPC ---
PATIENT NAME: YOGESH QUEEN : 1955 GENDER: MALE VISIT DATE: 10/14/2016 DISCHARGE DATE: 10/14/16 1641 VISIT LOCKED DATE TIME: PHYSICIAN: ISIAH HAMILTON RESOURCE: ISIAH HAMILTON REASON FOR APPOINTMENT 1. BACK PAIN HISTORY OF PRESENT ILLNESS FALL RISK SCREENING: SCREENING :NO FALLS IN THE PAST YEAR 61 YEAR OLD MALE PATIENT WITH HISTORY OF CHRONIC BACK PAIN. PATIENT DESCRIBES THE PAIN ACHING, SHARP, STABBING, TENDER, THROBBING, SORE AND SHOOTING WITH A PAIN SCORE OF 8/10. PATIENT STATES THAT HE HAS HAD BACK PAIN FOR A WHILE BUT JUST IN THE LAST FEW WEEKS THE PAIN BECOME SEVERE. PATIENT IS CURRENTLY USING OXYCODONE IS AID IN PAIN RELIEF. MR. QUEEN STATES THAT ANY TYPE OF ACTIVITY INCREASES THE PAIN IN HIS LOWER BACK AND IT IS DIFFICULT FOR HIM TO GET UP AND WALK DUE TO THE PAIN. LAYING DOWN AND ICE/HEAT HELP TO RELIEVE THE PAIN. PATIENT DENIES UNEXPLAINABLE WEIGHT LOSS, FEVER, CHILLS, NEW CHANGES ON HIS URINARY OR BOWEL CONTROL. PAIN SCREENING: PATIENT HAS A COMPLAINT OF ACUTE OR CHRONIC PAIN YES CURRENT MEDICATIONS TAKING METFORMIN HCL 850 MG TABLET 1 TABLET WITH A MEAL ORALLY BID TAKING METOPROLOL SUCCINATE 50 MG TABLET EXTENDED RELEASE ORALLY TAKING ATORVASTATIN CALCIUM 20 MG TABLET 1 TABLET ORALLY ONCE A DAY TAKING LEVOTHYROXINE SODIUM 25 MCG TABLET 1 TABLET ON AN EMPTY STOMACH IN THE MORNING ORALLY ONCE A DAY TAKING OXYCODONE-ACETAMINOPHEN 5-325 MG TABLET 1 TABLET NEEDED ORALLY EVERY 6 HRS TAKING DIAZEPAM 5 MG TABLET 1 TABLET NEEDED ORALLY THREE TIMES DAILY NEEDED TAKING KETOROLAC TROMETHAMINE 10 MG TABLET 1 TABLET WITH FOOD OR MILK NEEDED ORALLY EVERY 6 HRS MEDICATION LIST REVIEWED AND RECONCILED WITH THE PATIENT PAST MEDICAL HISTORY DIABETES HYPERLIPIDEMIA HYPOTHYROID HTN ALLERGIES N.K.D.A. SURGICAL HISTORY COLONOSCOPY 08/2016 FAMILY HISTORY FATHER: , DIAGNOSED WITH OTHER MOTHER: , DIAGNOSED WITH CANCER [id number] CA. SOCIAL HISTORY GENERAL: TOBACCO USE ARE YOU A:NONSMOKER ALCOHOL SCREENING POINTS2 INTERPRETATIONNEGATIVE RECREATIONAL DRUG USE DRUG USE?NO CAFFEINE CAFFEINE USE?YES OCCASSIONALLY OCCUPATION: [employer]. DIET: REGULAR. EXERCISE: NO REGULAR EXERCISE. MARITAL STATUS: . PETS: NONE. JAIN: NO JAIN BELIEFS THAT WOULD IMPACT HEALTH CARE. LANGUAGE: FRENCH. EDUCATION: COLLEGE PLAN OF CARE FOR THE PAIN CLINIC REVIEWED WITH PATIENT AND HE VERBLAIZED UNDERSTANDING. LEARNING BARRIERS / SPECIAL NEEDS VISION IMPAIRED?YES :CORRECTIVE LENSES LEARNING PREFERENCES?NO PAIN CLINIC PFS, CLERGY, PUBLIC HEALTH REFERRALS PFS REFERRAL NEEDED?NO CLERGY REFERRAL NEEDED?NO PUBLIC HEALTH REFERRAL NEEDED?NO ADVANCED DIRECTIVES HEALTH CARE PROXY?YES NAME OF HCP MAKR ACUÑA CONTACT # FOR HCP [phone] IF YES, DO YOU HAVE A COPY WITH YOU?NO DO YOU HAVE A DNR?NO LIVING WILL?YES MARK QUEEN- IF YES, DO YOU HAVE A COPY WITH YOU?NO POWER OF WEBSITE OPTIMIZATION STRATEGIST?YES NAME OF POA? MARK QUEEN- PHONE # OF POA? SEE ABOVE IF YES, DO YOU HAVE A COPY WITH YOU?NO DOMESTIC VIOLENCE: NONE, . INSTRUCTED TO BRING COPIES OF ADVANCED DIRECTIVES IN THE NEXT TIME HE COMES IN. HOSPITALIZATION/MAJOR DIAGNOSTIC PROCEDURE KIDNEY STONES 2012 REVIEW OF SYSTEMS CONSTITUTIONAL: ANY CHANGE IN YOUR MEDICAL CONDITION? NO . CHILLS NO . FEVER NO . INFECTION: DO YOU HAVE NEW INFECTIONS? NO . DO YOU HAVE HISTORY OF MRSA? NO . MUSCULOSKELETAL: ANY NEW PATTERNS OF PAIN OR NUMBNESS? YES LEFT HIP RADIATING DOWN LEFT LEG. ALSO PAIN IN LEFT BACK . SYTEMIC LUPUS NO . GASTROENTEROLOGY: ANY NEW CHANGE IN BOWEL CONTROL? NO . BARRETTS ESOPHAGUS NO . CIRRHOSIS NO . HEPATITIS NO . LIVER FAILURE NO . ACID REFLUX NO . UNEXPLAINED WEIGHT LOSS NO . GENITOURINARY: ANY NEW CHANGE IN BLADDER CONTROL? NO . IS THERE A CHANCE YOU COULD BE ? NO . HEMATOLOGY/LYMPH: DO YOU TAKE ANY BLOOD THINNERS? (FOR EXAMPLE- COUMADIN, PLAVIX, AGGRENOX, PLATEL, PRADAXA, OR XARELTO) NO . WHEN WAS YOUR LAST DOSE? DATE: TIME: . LOW PLATELET COUNT NO . SICKLE CELL DISEASE NO . VON WILLIEBRANDS NO . FACTOR V LEIDEN NO . THALLASEMIA NO . ANEMIA NO . EASY BRUISING NO . NEUROLOGY: HAVE YOU FALLEN IN THE PAST 6 MONTHS? NO . ANY NEW EXTREMITY NUMBNESS OR WEAKNESS? NO . HEAD INJURY NO . DEMENTIA NO . CEREBRAL PALSY NO . MULTIPLE SCLEROSIS NO . DIZZINESS NO . HEADACHE NO . STROKES NO . VERTIGO NO . CARDIOLOGY: DO YOU HAVE A PACEMAKER OR DEFIBRILLATOR? NO . ANGINA NO . HEART ATTACK NO . HEART SURGERY NO . CONGESTIVE HEART FAILURE/FLUID OVERLOAD NO . CHEST PAIN NO . HIGH BLOOD PRESSURE ON MEDICATION(S) . IRREGULAR HEART BEAT NO . RESPIRATORY: HAVE YOU BEEN SICK IN THE PAST WEEK? NO . FEVER NO . FLU LIKE SYMPTOMS? NO . CPAP NO . BYPAP NO . ASTHMA NO . EMPHYSEMA NO . CHRONIC LUNG DISEASES NO . SHORTNESS OF BREATH ON EXERTION NO . COUGH NO . SNORING YES . INTEGUMENTARY: DO YOU HAVE ANY RASHES OR OPEN SORES? NO . ALLERGIC/IMMUNO: ARE YOU ALLERGIC TO SHELLFISH OR IV DYE? NO . ANY NEW ALLERGIES? NO . PSYCHIATRIC: DO YOU HAVE THOUGHTS OF HURTING YOURSELF OR SOMEONE ELSE? NO . ARE YOU ABUSED, NEGLECTED, OR IN AN UNSAFE ENVIRONMENT? NO . ENDOCRINOLOGY: ARE YOU DIABETIC? YES . THYROID DISORDER HYPOTHYROID . OTHER: DO YOU NEED ANY PRESCRIPTIONS? NO . IF YES, PLEASE LIST: ____ . ANY NEW PROBLEMS WITH YOUR MEDICATIONS? NO . WHEN DID YOU LAST EAT? ____ . WHEN DID YOU LAST DRINK? ____ . WHAT DID YOU LAST DRINK? ____ . NAME OF PERSON DRIVING YOU HOME? ____ . DO YOU HAVE ANY OTHER QUESTIONS OR CONCERNS NO . REVIEWED BY: PROVIDER: ISIAH HAMILTON MD . VITAL SIGNS WT 245.2 LBS, HT 68", BMI 37.28 INDEX, BP 169/81 MM HG, HR 98 /MIN, RR 16 /MIN, TEMP 97.4 F, OXYGEN SAT % 93%, NA INITIALS TL 1516, REVIEWED BY: AD. EXAMINATION : PATIENT IS ALERT O X 3 AND COOPERATIVE. TENDERNESS IN THE LOWER BACK AND PARASPINAL MUSCLE GROUP. PROBLEMS STANDING UP. LIMPING FROM THE LEFT LEG. SPASTICITY IN THE LOWER BACK ESPECIALLY ON THE LEFT SIDE. LEFT LEG IS WEAKER THEN THE RIGHT AT EXTENSION AND FLEXION. MRI DONE ON 10/10/26 SHOWS A DISC BULGE AT L4-L5 AND L5-S1. ASSESSMENTS INTERVERTEBRAL DISC DISORDERS WITH RADICULOPATHY, LUMBAR REGION - M51.16 (PRIMARY) INTERVERTEBRAL DISC DISORDERS WITH RADICULOPATHY, LUMBOSACRAL REGION - M51.17 TREATMENT INTERVERTEBRAL DISC DISORDERS WITH RADICULOPATHY, LUMBAR REGION NOTES: WE DISCUSSED SEVERAL ISSUES WITH MR. QUEEN'S PAIN MANAGEMENT CASE. AT THIS TIME THE PATIENT WILL CONTINUE WITH THE SAME MEDICATION REGIME BEFORE. WE DISCUSSED SEVERAL INJECTIONS THAT MAY AID IN PAIN RELIEF. DUE TO THE PATIENT'S RADICULAR PAIN DOWN THE LEFT LEG WE DISCUSSED IN DETAIL EPIDURAL'S. AT THIS TIME THE PATIENT WOULD LIKE TO TRY THE INTERLAMINAR APPROACH AND IF THAT DOES NOT WORK WE WILL THEN MOVE TO A TRANSFORAMINAL INJECTION. WE DISCUSSED THE RISKS, BENEFITS, AND ALTERNATIVES TO THE INJECTION AND THE PATIENT WOULD LIKE TO PROCEED. INSTRUCTIONS WERE GIVEN, QUESTIONS WERE ANSWERED, PATIENT REPORTS UNDERSTANDING AND AGREES WITH THE PLAN. I, NATE PRINGLE, DOCUMENTED THE ABOVE INFORMATION ACTING A SCRIBE FOR DR. HAMILTNO. I HAVE REVIEWED THE ABOVE DOCUMENT, WRITTEN BY NATE WARRENIBMicky AND I VERIFY THAT IT IS ACCURATE. DEAR DR. COLON:THANK YOU FOR YOUR KIND REFERRAL OF MR. QUEEN. YOU WANT TO DISCUSS HER CASE WITH ME PLEASE CALL ME AT THE PAIN CENTER AT [phone]. SINCERELY,ISIAH HAMILTON, [facility]. OTHERS NOTES: WHAT IS LUMBAR EPIDURAL INJECTION? MATERIAL WAS PRINTED,LUMBAR EPIDURAL INJECTION: YOUR PROCEDURE MATERIAL WAS PRINTED. PROCEDURE CODES FA211 ESTABILISHED PATIENT [facility] FACILITY CHARGE G8427 DOC MEDS VERIFIED W/PT OR RE G8730 PAIN ASSESS POS TOOL F/U PLAN DOC FOLLOW UP LESI AFTER APPROVAL ELECTRONICALLY SIGNED BY ISIAH HAMILTON MD ON 10/16/2016 AT 01:42 PM EST DISCLAIMER : THIS IS A VISIT SUMMARY EXTRACTED FROM THE [employer] CHART. IT IS NOT A COPY OF THE [employer] PROGRESS NOTE. MELISSA
== END ==
LOC: M PAIN 15:20
PROVIDERS: ATTEND Anesthesiology
DX: G89.29 Other chronic pain (principal); M51.16 Intervertebral disc disorders with radiculopathy, lumbar region; M51.17 Intervertebral disc disorders with radiculopathy, lumbosacral region; E11.9 Type 2 diabetes mellitus without complications; E78.5 Hyperlipidemia, unspecified; E03.9 Hypothyroidism, unspecified; I10 Essential (primary) hypertension; Z79.84 Long term (current) use of oral hypoglycemic drugs; Z79.891 Long term (current) use of opiate analgesic; Z79.899 Other long term (current) drug therapy

== ENCOUNTER → 2016-10-15 | Outpatient (CLI) | payer OTHER ==
[~2016-10-15] MED LIST: ISOVUE-M 300 61% 15ML VIAL (Q9967) As Ordered ONE; LIDOCAINE 1% SDV INJ 30 ML VIAL As Ordered ONE; diazePAM 5 MG TAB As Ordered ONE; methylPREDNISolone SUSP 40 MG/ML (DEPO-medrol) VIAL (J1030) As Ordered ONE; oxyCODONE 5MG TAB As Ordered ONE
--- NOTE | 2016-10-15 16:58 | REP ---
Partial lumbar spine series: Three views: History: Lumbar epidural steroid injection for pain. 28 seconds of fluoroscopy is reported. Findings: A sequence of three last image hold fluoroscopic spot radiographs of the lumbar spine document needle position and contrast injection associated with epidural steroid injection. Signed by Vidal Juarez MD 10/15/2016 05:02 P
--- NOTE | 2016-10-21 00:03 | ECWPNPC ---
PATIENT NAME: YOGESH QUEEN : 1955 GENDER: MALE VISIT DATE: 10/15/2016 DISCHARGE DATE: 10/15/16 1458 VISIT LOCKED DATE TIME: PHYSICIAN: ISIAH HAMILTON RESOURCE: ISIAH HAMILTON REASON FOR APPOINTMENT 1. LESI HISTORY OF PRESENT ILLNESS HISTORY OF PRESENT ILLNESS: PAIN THE PATIENT DESCRIBES THE PAIN... FALL RISK SCREENING: SCREENING :NO FALLS IN THE PAST YEAR CURRENT MEDICATIONS TAKING METFORMIN HCL 850 MG TABLET 1 TABLET WITH A MEAL ORALLY BID, NOTES: 10-14-162099 TAKING METOPROLOL SUCCINATE 50 MG TABLET EXTENDED RELEASE ORALLY , NOTES: 10-14-162099 TAKING ATORVASTATIN CALCIUM 20 MG TABLET 1 TABLET ORALLY ONCE A DAY, NOTES: 10-14-162099 TAKING LEVOTHYROXINE SODIUM 25 MCG TABLET 1 TABLET ON AN EMPTY STOMACH IN THE MORNING ORALLY ONCE A DAY, NOTES: 10-15-16799 TAKING OXYCODONE-ACETAMINOPHEN 5-325 MG TABLET 1 TABLET NEEDED ORALLY EVERY 6 HRS, NOTES: 10-15-16799 TAKING DIAZEPAM 5 MG TABLET 1 TABLET NEEDED ORALLY THREE TIMES DAILY NEEDED, NOTES: 10-15-16799 TAKING KETOROLAC TROMETHAMINE 10 MG TABLET 1 TABLET WITH FOOD OR MILK NEEDED ORALLY EVERY 6 HRS, NOTES: 799 TAKING PREDNISOLONE 5 MG (48) TABLET THERAPY PACK ORALLY TAPERING/ DC, NOTES: 10-15-16799 MEDICATION LIST REVIEWED AND RECONCILED WITH THE PATIENT PAST MEDICAL HISTORY DIABETES HYPERLIPIDEMIA HYPOTHYROID HTN SOCIAL HISTORY GENERAL: TOBACCO USE ARE YOU A:NONSMOKER LEARNING BARRIERS / SPECIAL NEEDS ORIENTED TO PLAN OF CARE: PATIENT, PAIN MANAGEMENT PATIENT, ORIENTED TO PLAN OF CARE: PATIENT, PAIN MANAGEMENT PATIENT. NEW PATIENT PAIN DIARY TODAY'S VISITNOTES FROM 0-10, WHAT LEVEL IS YOUR PAIN TODAY?0 PAIN CLINIC PFS, CLERGY, PUBLIC HEALTH REFERRALS PFS REFERRAL NEEDED?NO CLERGY REFERRAL NEEDED?NO PUBLIC HEALTH REFERRAL NEEDED?NO WAS THE PROVIDER NOTIFIED OF ANY PERTINENT INFO?NO PFS REFERRAL NEEDED?NO CLERGY REFERRAL NEEDED?NO PUBLIC HEALTH REFERRAL NEEDED?NO WAS THE PROVIDER NOTIFIED OF ANY PERTINENT INFO?NO REVIEW OF SYSTEMS CONSTITUTIONAL: ANY CHANGE IN YOUR MEDICAL CONDITION? NO . CHILLS NO . FEVER NO . INFECTION: DO YOU HAVE NEW INFECTIONS? NO . DO YOU HAVE HISTORY OF MRSA? NO . MUSCULOSKELETAL: ANY NEW PATTERNS OF PAIN OR NUMBNESS? NO . GASTROENTEROLOGY: ANY NEW CHANGE IN BOWEL CONTROL? NO . GENITOURINARY: ANY NEW CHANGE IN BLADDER CONTROL? NO . IS THERE A CHANCE YOU COULD BE ? NO . HEMATOLOGY/LYMPH: DO YOU TAKE ANY BLOOD THINNERS? (FOR EXAMPLE- COUMADIN, PLAVIX, AGGRENOX, PLATEL, PRADAXA, OR XARELTO) NO . WHEN WAS YOUR LAST DOSE? DATE: TIME: . NEUROLOGY: HAVE YOU FALLEN IN THE PAST 6 MONTHS? NO . ANY NEW EXTREMITY NUMBNESS OR WEAKNESS? NO . CARDIOLOGY: DO YOU HAVE A PACEMAKER OR DEFIBRILLATOR? NO . RESPIRATORY: HAVE YOU BEEN SICK IN THE PAST WEEK? NO . FEVER NO . FLU LIKE SYMPTOMS? NO . COUGH NO . INTEGUMENTARY: DO YOU HAVE ANY RASHES OR OPEN SORES? NO . ALLERGIC/IMMUNO: ARE YOU ALLERGIC TO SHELLFISH OR IV DYE? NO . ANY NEW ALLERGIES? NO . PSYCHIATRIC: DO YOU HAVE THOUGHTS OF HURTING YOURSELF OR SOMEONE ELSE? NO . ARE YOU ABUSED, NEGLECTED, OR IN AN UNSAFE ENVIRONMENT? NO . ENDOCRINOLOGY: ARE YOU DIABETIC? YES . OTHER: DO YOU NEED ANY PRESCRIPTIONS? NO . IF YES, PLEASE LIST: ____ . ANY NEW PROBLEMS WITH YOUR MEDICATIONS? NO . WHEN DID YOU LAST EAT? ____0810-15-16 . WHEN DID YOU LAST DRINK? ____0810-15-16 . WHAT DID YOU LAST DRINK? ____WATER . NAME OF PERSON DRIVING YOU HOME? ____ . DO YOU HAVE ANY OTHER QUESTIONS OR CONCERNS NO . REVIEWED BY: PROVIDER: . VITAL SIGNS WT 245.2 LBS, HT 68", BMI 37.28 INDEX, BP 179/92 MM HG, HR 91 /MIN, RR 18 /MIN, TEMP 98.0 F, OXYGEN SAT % 94, NA INITIALS TL 1324ELEVATED BP, RN Swati AWARE- TL. ASSESSMENTS INTERVERTEBRAL DISC DISORDERS WITH RADICULOPATHY, LUMBAR REGION - M51.16 (PRIMARY) PROCEDURES PRE PROCEDURE DIAGNOSIS LUMBAR DISC DISORDER WITH RADICULOPATHY, LUMBAR RADICULOPATHY POST PROCEDURE DIAGNOSIS LUMBAR RADICULOPATHY , LUMBAR DISC DISORDER WITH RADICULOPATHY PROCEDURE L3-L4 EPIDURAL STEROID INJECTION UNDER FLUOROSCOPIC GUIDANCE SURGEON DR. ISIAH HAMILTON [employer] ADMINISTRATOR NONE ANESTHESIA LOCAL PRE PROCEDURE NOTE THE PATIENT HAS A HISTORY OF CHRONIC LOW BACK PAIN. I EVALUATE THE PATIENT AND REVIEWED THE CHART. I WENT OVER THE RISKS, ALTERNATIVES, AND BENEFITS ASSOCIATED WITH THIS PROCEDURE. THE PATIENT WOULD LIKE TO PROCEED AND GIVE CONSENT TO PERFORMED THE PROCEDURE. THE PATIENT DENIES UNEXPLAINABLE WEIGHT LOSS, FEVER, CHILLS, OR NEW CHANGES IN URINARY OR BOWEL CONTROL. DESCRIPTION OF PROCEDURE THE PATIENT WAS BROUGHT TO THE PROCEDURE ROOM AND PLACED IN THE PRONE POSITION. THE LUMBOSACRAL AREA WAS CLEANED WITH BETADINE SOLUTION AND DRAPED ASEPTICALLY. THE PROCEDURE WAS DONE UNDER STERILE CONDITIONS. I CHECKED LATERALITY AND THE LEVEL WHERE THE PROCEDURE WAS GOING TO BE PERFORMED WITH THE PATIENT AND THE SUPPORTING STAFF AT THE MOMENT OF THE TIME OUT IN THE PROCEDURE ROOM. UNDER FLUOROSCOPIC GUIDANCE, THE TARGET POINT WAS SELECTED AT THE INTERLAMINAR LEVEL OF L3-L4. LIDOCAINE WAS USED TO NUMB THE SKIN AND THE SUBCUTANEOUS TISSUE BELOW IT. EPIDURAL TUOHY NEEDLE, 17-GAUGE, WAS ADVANCED UNDER FLUOROSCOPIC GUIDANCE AND FOLLOWING PATIENT FEEDBACK UNTIL THE EPIDURAL SPACE WAS REACHED, 7 CM DEEP INTO THE SKIN BY THE LOSS OF RESISTANCE TECHNIQUE. ISOVUE M DYE 30%, 0.25 ML, WAS INJECTED SHOWING ADEQUATE SPREAD OF THE DYE. THEN, A SOLUTION OF 3 ML OF NORMAL SALINE WITH DEPO-MEDROL 60 MG WAS INJECTED SLOWLY FOLLOWING PATIENT FEEDBACK. THERE WAS NO EVIDENCE OF BLOOD, PARESTHESIA OR CEREBROSPINAL FLUID DURING THE PROCEDURE. THE PATIENT WAS SENT TO THE RECOVERY ROOM. THE PATIENT WAS MOVING THE EXTREMITIES AND DOING WELL. THERE WAS NO COMPLICATION DURING THE PROCEDURE. FLUOROSCOPY TIME WAS 14 SECONDS. POST PROCEDURE NOTE THE PATIENT WILL BE SEEN IN A FOLLOW UP IN THE NEXT FEW WEEKS. INSTRUCTIONS WERE GIVEN, QUESTIONS WERE ANSWERED, AND THE PATIENT EXPRESSED UNDERSTANDING AND AGREES WITH THE PLAN. INSTRUCTIONS WERE GIVEN, QUESTIONS WERE ANSWERED, PATIENT REPORTS UNDERSTANDING AND AGREES WITH THE PLAN. I, CINDY SUAREZ, DOCUMENTED THE ABOVE INFORMATION ACTING A SCRIBE FOR DR. HAMILTON. I HAVE REVIEWED THE ABOVE DOCUMENT, WRITTEN BY CINDY SUAREZ SCRIBMicky AND I VERIFY THAT IT IS ACCURATE. DIAGNOSTIC IMAGING [facility] FLUORO GUIDE SPINE INJECTION (PAIN)[id number] PROCEDURE CODES 89432 LUMBAR/SACRAL W/ IMAGING 6045F RADXPS IN END [id number] PXD FOLLOW UP 3 WEEKS ELECTRONICALLY SIGNED BY ISIAH HAMILTON MD ON 10/20/2016 AT 01:15 PM EST DISCLAIMER : THIS IS A VISIT SUMMARY EXTRACTED FROM THE [employer] CHART. IT IS NOT A COPY OF THE [employer] PROGRESS NOTE. MELISSA
== END ==
LOC: M PAIN 13:00
PROVIDERS: ATTEND Anesthesiology
DX: G89.29 Other chronic pain (principal); M51.16 Intervertebral disc disorders with radiculopathy, lumbar region; E11.9 Type 2 diabetes mellitus without complications; E78.5 Hyperlipidemia, unspecified; E03.9 Hypothyroidism, unspecified; I10 Essential (primary) hypertension; Z79.84 Long term (current) use of oral hypoglycemic drugs; Z79.891 Long term (current) use of opiate analgesic; Z79.52 Long term (current) use of systemic steroids; Z79.899 Other long term (current) drug therapy
CPT/HCPCS: 62323; J1030; Q9967

== ENCOUNTER → 2016-10-21 | Outpatient (CLI) | payer OTHER ==
[~2016-10-21] MED LIST changes: +BUPIVACAINE HCL 0.25% 30 ML VIAL As Ordered ONE; +MIDAZOLAM INJ 2 MG/2 ML VIAL (J2250) As Ordered ONE; +dexameTHASONE 10 MG/1 ML VIAL PRES.FREE (J1100) As Ordered ONE; -diazePAM 5 MG TAB As Ordered ONE; +fentaNYL 100 MCG/2 ML INJECTION (J3010) As Ordered ONE; -methylPREDNISolone SUSP 40 MG/ML (DEPO-medrol) VIAL (J1030) As Ordered ONE; -oxyCODONE 5MG TAB As Ordered ONE
--- NOTE | 2016-10-21 16:54 | REP ---
C-ARM VIEWS LUMBAR SPINE: CLINICAL HISTORY: Pain. C-ARM views of the lumbar spine region are performed during injection by Dr. Schuster. [place] are seen along the lumbar spine region. Contrast is injected. 1 minute 48 seconds of fluoroscopic time was utilized. Signed by Braulio Weir MD 10/22/2016 09:51 A
--- NOTE | 2016-10-29 23:46 | ECWPNPC ---
PATIENT NAME: YOGESH QUEEN : 1955 GENDER: MALE VISIT DATE: 10/21/2016 DISCHARGE DATE: 10/21/16 1627 VISIT LOCKED DATE TIME: PHYSICIAN: ISIAH HAMILTON RESOURCE: ISIAH HAMILTON REASON FOR APPOINTMENT 1. TRANSFORMINAL HISTORY OF PRESENT ILLNESS HISTORY OF PRESENT ILLNESS: PAIN THE PATIENT DESCRIBES THE PAIN... FALL RISK SCREENING: SCREENING :NO FALLS IN THE PAST YEAR CURRENT MEDICATIONS TAKING METFORMIN HCL 850 MG TABLET 1 TABLET WITH A MEAL ORALLY BID, NOTES: 10-20-16 1800 TAKING METOPROLOL SUCCINATE 50 MG TABLET EXTENDED RELEASE ORALLY , NOTES: 10-20-16 09 TAKING ATORVASTATIN CALCIUM 20 MG TABLET 1 TABLET ORALLY ONCE A DAY, NOTES: 10-20-16 09 TAKING LEVOTHYROXINE SODIUM 25 MCG TABLET 1 TABLET ON AN EMPTY STOMACH IN THE MORNING ORALLY ONCE A DAY, NOTES: 10-20-16 09 TAKING OXYCODONE-ACETAMINOPHEN 5-325 MG TABLET 1 TABLET NEEDED ORALLY EVERY 6 HRS, NOTES: 10-21-16 07 TAKING GABAPENTIN 100 MG CAPSULE ORALLY TAKING NAPROXEN 250 MG TABLET 1 TABLET ORALLY TWICE A DAY NOT-TAKING DIAZEPAM 5 MG TABLET 1 TABLET NEEDED ORALLY THREE TIMES DAILY NEEDED NOT-TAKING KETOROLAC TROMETHAMINE 10 MG TABLET 1 TABLET WITH FOOD OR MILK NEEDED ORALLY EVERY 6 HRS NOT-TAKING PREDNISOLONE 5 MG (48) TABLET THERAPY PACK ORALLY TAPERING/ DC, NOTES: 10-15-16 0800 MEDICATION LIST REVIEWED AND RECONCILED WITH THE PATIENT PAST MEDICAL HISTORY DIABETES HYPERLIPIDEMIA HYPOTHYROID HTN ALLERGIES N.K.D.A. SOCIAL HISTORY GENERAL: TOBACCO USE ARE YOU A:NONSMOKER LEARNING BARRIERS / SPECIAL NEEDS ORIENTED TO PLAN OF CARE: PATIENT, PAIN MANAGEMENT PATIENT, ORIENTED TO PLAN OF CARE: PATIENT, PAIN MANAGEMENT PATIENT. NEW PATIENT PAIN DIARY TODAY'S VISITNOTES FROM 0-10, WHAT LEVEL IS YOUR PAIN TODAY?0 PAIN CLINIC PFS, CLERGY, PUBLIC HEALTH REFERRALS PFS REFERRAL NEEDED?NO CLERGY REFERRAL NEEDED?NO PUBLIC HEALTH REFERRAL NEEDED?NO WAS THE PROVIDER NOTIFIED OF ANY PERTINENT INFO?NO PFS REFERRAL NEEDED?NO CLERGY REFERRAL NEEDED?NO PUBLIC HEALTH REFERRAL NEEDED?NO WAS THE PROVIDER NOTIFIED OF ANY PERTINENT INFO?NO REVIEW OF SYSTEMS CONSTITUTIONAL: ANY CHANGE IN YOUR MEDICAL CONDITION? NO . CHILLS NO . FEVER NO . INFECTION: DO YOU HAVE NEW INFECTIONS? NO . DO YOU HAVE HISTORY OF MRSA? NO . MUSCULOSKELETAL: ANY NEW PATTERNS OF PAIN OR NUMBNESS? NO . GASTROENTEROLOGY: ANY NEW CHANGE IN BOWEL CONTROL? NO . GENITOURINARY: ANY NEW CHANGE IN BLADDER CONTROL? NO . IS THERE A CHANCE YOU COULD BE ? NO . HEMATOLOGY/LYMPH: DO YOU TAKE ANY BLOOD THINNERS? (FOR EXAMPLE- COUMADIN, PLAVIX, AGGRENOX, PLATEL, PRADAXA, OR XARELTO) NO . WHEN WAS YOUR LAST DOSE? DATE: TIME: . NEUROLOGY: HAVE YOU FALLEN IN THE PAST 6 MONTHS? NO . ANY NEW EXTREMITY NUMBNESS OR WEAKNESS? NO . CARDIOLOGY: DO YOU HAVE A PACEMAKER OR DEFIBRILLATOR? NO . RESPIRATORY: HAVE YOU BEEN SICK IN THE PAST WEEK? NO . FEVER NO . FLU LIKE SYMPTOMS? NO . COUGH NO . INTEGUMENTARY: DO YOU HAVE ANY RASHES OR OPEN SORES? NO . ALLERGIC/IMMUNO: ARE YOU ALLERGIC TO SHELLFISH OR IV DYE? NO . ANY NEW ALLERGIES? NO . PSYCHIATRIC: DO YOU HAVE THOUGHTS OF HURTING YOURSELF OR SOMEONE ELSE? NO . ARE YOU ABUSED, NEGLECTED, OR IN AN UNSAFE ENVIRONMENT? NO . ENDOCRINOLOGY: ARE YOU DIABETIC? YES . OTHER: DO YOU NEED ANY PRESCRIPTIONS? NO . IF YES, PLEASE LIST: ____ . ANY NEW PROBLEMS WITH YOUR MEDICATIONS? NO . WHEN DID YOU LAST EAT? ____09-53-46 0800 . WHEN DID YOU LAST DRINK? ____10-21-16 0800 . WHAT DID YOU LAST DRINK? ____ . NAME OF PERSON DRIVING YOU HOME? ____ . DO YOU HAVE ANY OTHER QUESTIONS OR CONCERNS NO . REVIEWED BY: PROVIDER: . VITAL SIGNS WT 245 LBS, HT 68", BMI 37.25 INDEX, BP 174/89 MM HG, HR 101 /MIN, RR 16 /MIN, TEMP 97.1 F, OXYGEN SAT % 94, NA INITIALS TL 1336, REVIEWED BY: KG. ASSESSMENTS INTERVERTEBRAL DISC DISORDERS WITH RADICULOPATHY, LUMBAR REGION - M51.16 (PRIMARY) PROCEDURES PN LUMBAR TRANSFORAMINAL BLOCKS PRE PROCEDURE DIAGNOSIS LUMBAR DISC DISORDER WITH RADICULOPATHY, LUMBOSACRAL RADICULOPATHY POST PROCEDURE DIAGNOSIS LUMBAR DISC DISORDER WITH RADICULOPATHY, LUMBOSACRAL RADICULOPATHY PROCEDURE LEFT L3 AND LEFT L4 TRANSFORAMINAL EPIDURAL STEROID INJECTION UNDER FLUOROSCOPIC GUIDANCE SURGEON DR ISIAH HAMILTON HEEL BREASTER NONE ANESTHESIA LOCAL PRE PROCEDURE NOTE PATIENT WITH HISTORY OF CHRONIC LOW BACK PAIN. I EVALUATE THE PATIENT AND REVIEWED THE CHART. I WENT OVER THE RISKS, ALTERNATIVES, AND BENEFITS ASSOCIATED WITH THIS PROCEDURE. THE PATIENT WOULD LIKE TO PROCEED AND GIVE CONSENT TO PERFORMED THE PROCEDURE. THE PATIENT DENIES UNEXPLAINABLE WEIGHT LOSS, FEVER, CHILLS, OR CHANGES IN URINARY OR BOWEL CONTROL DESCRIPTION OF PROCEDURE THE PATIENT WAS BROUGHT TO THE PROCEDURE ROOM AND PLACED IN THE PRONE POSITION. THE LUMBOSACRAL AREA WAS CLEANED WITH BETADINE SOLUTION AND DRAPED ASEPTICALLY. THE PROCEDURE WAS DONE UNDER STERILE CONDITIONS. I CHECKED LATERALITY AND THE LEVEL WHERE THE PROCEDURE WAS GOING TO BE PERFORMED WITH THE PATIENT AND THE SUPPORTING STAFF AT THE MOMENT OF THE TIME OUT IN THE PROCEDURE ROOM. UNDER FLUOROSCOPIC GUIDANCE, TARGETS WERE SELECTED AT THE LEFT TRANSFORAMINAL OPENING OF L3 AND THE LEFT TRANSFORAMINAL OPENING OF L4. TARGET POINT WAS SELECTED AFTER LATERAL ROTATION AND TILT OF THE MAGNIFIER OF THE C-ARM. LIDOCAINE 0.5% WAS USED TO NUMB THE SKIN AND THE SUBCUTANEOUS TISSUE BELOW IT. AN EPIMED INTRODUCER 18-GAUGE WAS ADVANCED UNTIL WE WENT CLOSE TO THE SELECTED TRANSFORAMINAL OPENINGS. AFTER PROPER POSITION OF THE NEEDLES WAS ACHIEVED, A 22-GAUGE EPIMED NEEDLE WAS PLACED INSIDE OF THE INTRODUCER AND ADVANCED TO THE TRANSFORAMINAL OPENING OF THE SELECTED SITES. WHEN PROPER POSITION OF THE NEEDLE WAS ACHIEVED, ISOVUE M DYE 30%, 0.25 ML, WAS INJECTED SHOWING ADEQUATE SPREAD OF THE DYE. THIS WAS DONE UNDER DIGITAL SUBTRACTION AND ANGIOGRAPHY. THERE WAS NO VASCULAR UPDATE. THEN, A SOLUTION OF 2 ML OF BUPIVACAINE 0.25% AND DEXAMETHASONE 10 MG WAS INJECTED AT EACH SITE. THERE WAS NO EVIDENCE OF BLOOD, PARESTHESIA OR CEREBROSPINAL FLUID DURING THE PROCEDURE. THE PATIENT WAS SENT TO THE RECOVERY ROOM. THE PATIENT WAS MOVING THE EXTREMITIES AND DOING WELL. THERE WAS NO COMPLICATION DURING THE PROCEDURE. FLUOROSCOPY TIME WAS 1 MINUTE 48 SECONDS. THE PATIENT RECEIVED VERSED 1 MG AND FENTANYL 175 MCG IV POST PROCEDURE NOTE THE PROCEDURE DONE WAS DISCUSSED WITH THE PATIENT. THE PATIENT WILL BE SEEN IN A FOLLOW UP IN THE NEXT FEW WEEKS. INSTRUCTIONS WERE GIVEN, QUESTIONS WERE ANSWERED, AND THE PATIENT EXPRESSED UNDERSTANDING AND AGREES WITH THE PLAN. I, NATE PRINGLE, DOCUMENTED THE ABOVE INFORMATION ACTING A SCRIBE FOR DR. HAMILTON. I, DR. HAMILTON, HAVE REVIEWED THE ABOVE DOCUMENT, SCRIBED BY NATE PRINGLE, AND I VERIFY THAT IT IS ACCURATE DIAGNOSTIC IMAGING [facility] FLUORO GUIDE SPINE INJECTION (PAIN)[id number] PROCEDURE CODES 59744 INJ FORAMEN EPIDURAL L/S 02109 INJ FORAMEN EPIDURAL ADD-ON 91504 MOD SED SAME PHYS/QHP 5/>YRS 73353 MOD SED SAME PHYS/QHP EA DISPOSITION & COMMUNICATION FOLLOW UP 3 WEEKS ELECTRONICALLY SIGNED BY ISIAH HAMILTON MD ON 10/29/2016 AT 01:59 PM EST DISCLAIMER : THIS IS A VISIT SUMMARY EXTRACTED FROM THE [employer] CHART. IT IS NOT A COPY OF THE [employer] PROGRESS NOTE. VALERIYD
== END ==
LOC: M PAIN 13:30
PROVIDERS: ATTEND Anesthesiology
DX: G89.29 Other chronic pain (principal); M51.16 Intervertebral disc disorders with radiculopathy, lumbar region; E11.9 Type 2 diabetes mellitus without complications; E78.5 Hyperlipidemia, unspecified; E03.9 Hypothyroidism, unspecified; I10 Essential (primary) hypertension; M51.17 Intervertebral disc disorders with radiculopathy, lumbosacral region; Z79.84 Long term (current) use of oral hypoglycemic drugs; Z79.891 Long term (current) use of opiate analgesic; Z79.899 Other long term (current) drug therapy
CPT/HCPCS: 64483; 64484; 99152; 99153; J1100; J2250; J3010; Q9967

== ENCOUNTER → 2016-11-09 | Outpatient (CLI) | payer OTHER | LOC: M PAIN 14:00 | PROVIDERS: ATTEND Anesthesiology | DX: Z09 Encounter for follow-up examination after completed treatment for conditions other than malignant neoplasm (principal); G89.29 Other chronic pain; M51.16 Intervertebral disc disorders with radiculopathy, lumbar region; M51.17 Intervertebral disc disorders with radiculopathy, lumbosacral region; E11.9 Type 2 diabetes mellitus without complications; E78.5 Hyperlipidemia, unspecified; E03.9 Hypothyroidism, unspecified; I10 Essential (primary) hypertension; Z79.84 Long term (current) use of oral hypoglycemic drugs; Z79.891 Long term (current) use of opiate analgesic; Z79.899 Other long term (current) drug therapy ==

== ENCOUNTER → 2016-12-21 | Outpatient (CLI) | payer OTHER ==
--- NOTE | 2016-12-28 00:31 | ECWPNPC ---
PATIENT NAME: YOGESH QUEEN : 1955 GENDER: MALE VISIT DATE: 12/21/2016 DISCHARGE DATE: 12/21/16 1507 VISIT LOCKED DATE TIME: PHYSICIAN: ISIAH HAMILTON RESOURCE: ISIAH HAMILTON REASON FOR APPOINTMENT 1. BACK HISTORY OF PRESENT ILLNESS HISTORY OF PRESENT ILLNESS: PAIN THE PATIENT DESCRIBES THE PAIN... 61 YEAR OLD MALE PATIENT WITH HISTORY OF CHRONIC BACK PAIN. PATIENT DESCRIBES THE PAIN SORE WITH A PAIN SCORE OF 1/10 ON TODAY'S VISIT.. PATIENT REPORTS THAT HE IS STILL EXPERIENCING PAIN RELIEF FROM THE LAST INJECTION. AND AT THIS TIME HIS BACK PAIN IS DOING PRETTY GOOD, BUT THE RADIATING PAIN DOWN THE LEG AT THIS TIME IS HURTING THE MOST. PATIENT STATES THAT THE RADIATING PAIN DOWN THE LEG, GOES DOWN THE BACK THEN GOES TO THE FRONT IN THE KNEE AREA WITH NUMBNESS IN THE TOES. PATIENT STATES THAT SITTING THE WRONG WAY WILL CAUSE SOME PAIN. PATIENT STATES THAT AT THIS TIME HIS PAIN IS VERY MANAGEABLE. PATIENT DENIES UNEXPLAINABLE WEIGHT LOSS, FEVER, CHILLS, NEW CHANGES ON HIS URINARY OR BOWEL CONTROL. FALL RISK SCREENING: SCREENING :NO FALLS IN THE PAST YEAR CURRENT MEDICATIONS TAKING METFORMIN HCL 850 MG TABLET 1 TABLET WITH A MEAL ORALLY BID TAKING METOPROLOL SUCCINATE 50 MG TABLET EXTENDED RELEASE ORALLY TAKING ATORVASTATIN CALCIUM 20 MG TABLET 1 TABLET ORALLY ONCE A DAY TAKING LEVOTHYROXINE SODIUM 25 MCG TABLET 1 TABLET ON AN EMPTY STOMACH IN THE MORNING ORALLY ONCE A DAY TAKING NAPROXEN 250 MG TABLET 1 TABLET ORALLY TWICE A DAY TAKING GABAPENTIN 300 MG CAPSULE 1 CAP ORALLY THREE TIMES DAILY TAKING OXYCODONE-ACETAMINOPHEN 5-325 MG TABLET 1 TABLET NEEDED ORALLY EVERY 6 HRS PRN FOR PAIN MDD2 TAKING IBUPROFEN 800 MG TABLET 1 TABLET ORALLY WITH FOOD THREE TIMES A DAY NEEDED FOR PAIN DISCONTINUED DIAZEPAM 5 MG TABLET 1 TABLET NEEDED ORALLY THREE TIMES DAILY NEEDED DISCONTINUED KETOROLAC TROMETHAMINE 10 MG TABLET 1 TABLET WITH FOOD OR MILK NEEDED ORALLY EVERY 6 HRS DISCONTINUED PREDNISOLONE 5 MG (48) TABLET THERAPY PACK ORALLY TAPERING/ DC, NOTES: 10-15-16 0800 MEDICATION LIST REVIEWED AND RECONCILED WITH THE PATIENT PAST MEDICAL HISTORY DIABETES HYPERLIPIDEMIA HYPOTHYROID HTN BACK PAIN ALLERGIES N.K.D.A. SURGICAL HISTORY NO SURGICAL HISTORY DOCUMENTED. FAMILY HISTORY NO FAMILY HISTORY DOCUMENTED. SOCIAL HISTORY GENERAL: PAIN CLINIC PFS, CLERGY, PUBLIC HEALTH REFERRALS CLERGY REFERRAL NEEDED?NO WAS THE PROVIDER NOTIFIED OF ANY PERTINENT INFO?NO PFS REFERRAL NEEDED?NO PUBLIC HEALTH REFERRAL NEEDED?NO PATIENT: ____. HOSPITALIZATION/MAJOR DIAGNOSTIC PROCEDURE KIDNEY STONES 2012 REVIEW OF SYSTEMS CONSTITUTIONAL: ANY CHANGE IN YOUR MEDICAL CONDITION? NO . CHILLS NO . FEVER NO . INFECTION: DO YOU HAVE NEW INFECTIONS? NO . DO YOU HAVE HISTORY OF MRSA? NO . MUSCULOSKELETAL: ANY NEW PATTERNS OF PAIN OR NUMBNESS? YES, NOT REALLY NEW BUT CONTINUES IN THE SIATIC REGION AND GOES DOWN THE LEFT LEG, FRONT OF LEG AND STILL HAS A FEW TOES THAT ARE NUMB. . GASTROENTEROLOGY: ANY NEW CHANGE IN BOWEL CONTROL? NO . GENITOURINARY: ANY NEW CHANGE IN BLADDER CONTROL? NO . IS THERE A CHANCE YOU COULD BE ? NO . HEMATOLOGY/LYMPH: DO YOU TAKE ANY BLOOD THINNERS? (FOR EXAMPLE- COUMADIN, PLAVIX, AGGRENOX, PLATEL, PRADAXA, OR XARELTO) NO . WHEN WAS YOUR LAST DOSE? DATE: TIME: . NEUROLOGY: HAVE YOU FALLEN IN THE PAST 6 MONTHS? NO . ANY NEW EXTREMITY NUMBNESS OR WEAKNESS? NO . CARDIOLOGY: DO YOU HAVE A PACEMAKER OR DEFIBRILLATOR? NO . RESPIRATORY: HAVE YOU BEEN SICK IN THE PAST WEEK? NO . FEVER NO . FLU LIKE SYMPTOMS? NO . COUGH NO . INTEGUMENTARY: DO YOU HAVE ANY RASHES OR OPEN SORES? NO . ALLERGIC/IMMUNO: ARE YOU ALLERGIC TO SHELLFISH OR IV DYE? NO . ANY NEW ALLERGIES? NO . PSYCHIATRIC: DO YOU HAVE THOUGHTS OF HURTING YOURSELF OR SOMEONE ELSE? NO . ARE YOU ABUSED, NEGLECTED, OR IN AN UNSAFE ENVIRONMENT? NO . ENDOCRINOLOGY: ARE YOU DIABETIC? YES . OTHER: DO YOU NEED ANY PRESCRIPTIONS? YES . IF YES, PLEASE LIST: GABAPENTIN . ANY NEW PROBLEMS WITH YOUR MEDICATIONS? NO . WHEN DID YOU LAST EAT? ____ . WHEN DID YOU LAST DRINK? ____ . WHAT DID YOU LAST DRINK? ____ . NAME OF PERSON DRIVING YOU HOME? ____ . DO YOU HAVE ANY OTHER QUESTIONS OR CONCERNS YES, CONCERNED IF THE GABAPENTIN IS MASKING SOME OF THE PAIN AND SHOULD HE WEAN OFF IT? ALSO SHOULD HE HAVE ANOTHER EPIDURAL? WHAT IS THE NEXT STEP? . REVIEWED BY: PROVIDER: ISIAH HAMILTON MD . VITAL SIGNS WT 230 LBS, HT 68", BMI 34.97 INDEX, BP 162/78 MM HG, HR 86 /MIN, RR 18 /MIN, TEMP 98.4 F, OXYGEN SAT % 94%, NA INITIALS [id number], REVIEWED BY: CM. EXAMINATION : PATIENT IS ALERT O X 3 AND COOPERATIVE. PATIENT AMBULATES WITH A SLIGHT LIMP ON THE LEFT LEG. PATIENT'S RIGHT LEG IS WEAKER AT FLEXION AND EXTENSION COMPARED TO THE LEFT LEG. PATIENT HAS SOME TENDERNESS IN THE SACROILIAC AREA. MRI DONE ON 10/10/26 SHOWS A DISC BULGE AT L4-L5 AND L5-S1. ASSESSMENTS INTERVERTEBRAL DISC DISORDERS WITH RADICULOPATHY, LUMBAR REGION - M51.16 (PRIMARY) INTERVERTEBRAL DISC DISORDERS WITH RADICULOPATHY, LUMBOSACRAL REGION - M51.17 SACROILIITIS, NOT ELSEWHERE CLASSIFIED - M46.1 TREATMENT INTERVERTEBRAL DISC DISORDERS WITH RADICULOPATHY, LUMBAR REGION REFILL GABAPENTIN CAPSULE, 300 MG, 2 CAP, ORALLY, THREE TIMES DAILY MDD6, 30 DAY(S), 180, REFILLS 2 NOTES: WE DISCUSSED SEVERAL ISSUES WITH MR. QUEEN'S PAIN MANAGEMENT CASE. AT THIS TIME I WILL HAVE THE PATIENT INCREASE GABAPENTIN FOR ONE WEEK, THEN USE TIZANIDINE, THEN AFTER TWO WEEKS FROM TODAY START CYMBALTA, AND TO TAKE CYMBALTA WITH FOOD. PATIENT STATES THAT HE IS DOING FAIRLY WELL FROM THE INJECTION AND THE INJECTION DID DECREASE HIS PAIN AND INCREASE HIS MOBILITY AND FUNCTIONALITY. PATIENT TO FOLLOW UP WITH ME IN 6 WEEKS. , INSTRUCTIONS WERE GIVEN, QUESTIONS WERE ANSWERED, PATIENT REPORTS UNDERSTANDING AND AGREES WITH THE PLAN. I, CINDY SUAREZ, DOCUMENTED THE ABOVE INFORMATION ACTING A SCRIBE FOR DR. HAMILTON. I HAVE REVIEWED THE ABOVE DOCUMENT, WRITTEN BY CINDY SUAREZ SCRIBE AND I VERIFY THAT IT IS ACCURATE. OTHERS START CYMBALTA CAPSULE DELAYED RELEASE PARTICLES, 30 MG, 1 CAPSULE, ORALLY FOR PAIN, TWICE A DAY MDD2, 30 DAY(S), 60, REFILLS 2 START TIZANIDINE HCL TABLET, 2 MG, 1 TABLET NEEDED, ORALLY FOR SPASMS AND PAIN, BEFORE BEDTIME MAY REPEAT IN 4 HRS MDD2, 30 DAY(S), 60, REFILLS 2 PROCEDURE CODES FA211 ESTABILISHED PATIENT [facility] FACILITY CHARGE G8455 PAIN ASSESS POS TOOL F/U PLAN DOC G8427 DOC MEDS VERIFIED W/PT OR RE DISPOSITION & COMMUNICATION FOLLOW UP 6 WEEKS ELECTRONICALLY SIGNED BY ISIAH HAMILTON MD ON 12/27/2016 AT 06:06 PM EDT DISCLAIMER : THIS IS A VISIT SUMMARY EXTRACTED FROM THE [employer] CHART. IT IS NOT A COPY OF THE [employer] PROGRESS NOTE. MELISSA
== END ==
LOC: M PAIN 13:40
PROVIDERS: ATTEND Anesthesiology
DX: G89.29 Other chronic pain (principal); M51.16 Intervertebral disc disorders with radiculopathy, lumbar region; M51.17 Intervertebral disc disorders with radiculopathy, lumbosacral region; M46.1 Sacroiliitis, not elsewhere classified; E11.9 Type 2 diabetes mellitus without complications; E78.5 Hyperlipidemia, unspecified; E03.9 Hypothyroidism, unspecified; I10 Essential (primary) hypertension; Z79.84 Long term (current) use of oral hypoglycemic drugs; Z79.1 Long term (current) use of non-steroidal anti-inflammatories (NSAID); Z79.891 Long term (current) use of opiate analgesic; Z79.899 Other long term (current) drug therapy

== ENCOUNTER → 2017-05-20 | Outpatient (CLI) | payer OTHER ==
[~2017-05-20] MED LIST changes: +ATOR1TAB21 PO; -BUPIVACAINE HCL 0.25% 30 ML VIAL As Ordered ONE; +CIPR500T3 PO; +GABA-282 PO; -ISOVUE-M 300 61% 15ML VIAL (Q9967) As Ordered ONE; +LEVA1TAB2 PO; +LEVO25TA5 PO; -LIDOCAINE 1% SDV INJ 30 ML VIAL As Ordered ONE; +METF500T13 PO; +METF850T4 PO; +METO1TAB7 PO; +METO37.5 PO; -MIDAZOLAM INJ 2 MG/2 ML VIAL (J2250) As Ordered ONE; +TIZA2TA PO; +TIZA4CAP3 PO; +VALS1TAB49 PO; +VALSART/HCTZ PO; +VENTAER INH; -dexameTHASONE 10 MG/1 ML VIAL PRES.FREE (J1100) As Ordered ONE; -fentaNYL 100 MCG/2 ML INJECTION (J3010) As Ordered ONE
--- NOTE | 2017-05-25 00:31 | ECWPNPC ---
PATIENT NAME: YOGESH QUEEN : 1955 GENDER: MALE VISIT DATE: 05/20/2017 DISCHARGE DATE: 05/20/17 0000 VISIT LOCKED DATE TIME: PHYSICIAN: ISIAH HAMILTON RESOURCE: ISIAH HAMILTON REASON FOR APPOINTMENT 1. BACK PAIN HISTORY OF PRESENT ILLNESS HISTORY OF PRESENT ILLNESS: PAIN THE PATIENT DESCRIBES THE PAIN... 62 YEAR OLD MALE PATIENT WITH HISTORY OF CHRONIC LOW BACK PAIN. PATIENT DESCRIBES THE PAIN ACHING AND STABBING WITH A PAIN SCORE OF 1/10 TODAY. PATIENT REPORTS DOING FAIRLY WELL HOWEVER HE DOES HAS DAYS WHERE HIS PAIN IS SEVERE. CURRENTLY THE PATIENT IS NOT USING ANY MEDICATION OTHER THEN OTC IBUPROFEN. PATIENT REPORTS HIS PAIN MOVING AROUND AND STATES IT IS NOT CONSISTENT. MR. QUEEN HAS A TINGLY SENSATION IN BOTH FEET THAT COMES AND GOES. MR. QUEEN REPORTS DOING PHYSICAL THERAPY IN THE PAST AND STATES THAT IT HAS AID IN PAIN RELIEF IN THE PAST. MR. QUEEN ALSO STATES THAT HE IS TRYING TO STAY ACTIVE EVEN THOUGH NOT IN PHYSICAL THERAPY TO STAY LIMBER AND MOBILE. PATIENT DENIES UNEXPLAINABLE WEIGHT LOSS, FEVER, CHILLS, NEW CHANGES ON HIS URINARY OR BOWEL CONTROL. FALL RISK SCREENING: SCREENING :NO FALLS IN THE PAST YEAR CURRENT MEDICATIONS TAKING TIZANIDINE HCL 2 MG TABLET 1 TABLET NEEDED ORALLY FOR SPASMS AND PAIN BEFORE BEDTIME MAY REPEAT IN 4 HRS MDD2 TAKING METFORMIN HCL 850 MG TABLET 1 TABLET WITH A MEAL ORALLY BID TAKING METOPROLOL SUCCINATE 50 MG TABLET EXTENDED RELEASE ORALLY TAKING ATORVASTATIN CALCIUM 20 MG TABLET 1 TABLET ORALLY ONCE A DAY TAKING LEVOTHYROXINE SODIUM 25 MCG TABLET 1 TABLET ON AN EMPTY STOMACH IN THE MORNING ORALLY ONCE A DAY TAKING NAPROXEN 250 MG TABLET 1 TABLET ORALLY TWICE A DAY PRN TAKING IBUPROFEN 800 MG TABLET 1 TABLET ORALLY WITH FOOD THREE TIMES A DAY NEEDED FOR PAIN NOT-TAKING CYMBALTA 30 MG CAPSULE DELAYED RELEASE PARTICLES 1 CAPSULE ORALLY FOR PAIN TWICE A DAY MDD2 NOT-TAKING GABAPENTIN 300 MG CAPSULE 2 CAP ORALLY THREE TIMES DAILY MDD6 NOT-TAKING OXYCODONE-ACETAMINOPHEN 5-325 MG TABLET 1 TABLET NEEDED ORALLY EVERY 6 HRS PRN FOR PAIN MDD2 MEDICATION LIST REVIEWED AND RECONCILED WITH THE PATIENT PAST MEDICAL HISTORY DIABETES HYPERLIPIDEMIA HYPOTHYROID HTN BACK PAIN ALLERGIES N.K.D.A. SURGICAL HISTORY TONSILLECTOMY ADENOIDECTOMY HOSPITALIZATION/MAJOR DIAGNOSTIC PROCEDURE KIDNEY STONES 2011 REVIEW OF SYSTEMS REVIEWED BY: PROVIDER: ISIAH HAMILTON MD . CONSTITUTIONAL: ANY CHANGE IN YOUR MEDICAL CONDITION? NO . CHILLS NO . FEVER NO . INFECTION: DO YOU HAVE NEW INFECTIONS? NO . DO YOU HAVE HISTORY OF MRSA? NO . MUSCULOSKELETAL: ANY NEW PATTERNS OF PAIN OR NUMBNESS? NO . GASTROENTEROLOGY: ANY NEW CHANGE IN BOWEL CONTROL? NO . GENITOURINARY: ANY NEW CHANGE IN BLADDER CONTROL? NO . IS THERE A CHANCE YOU COULD BE ? NO . HEMATOLOGY/LYMPH: DO YOU TAKE ANY BLOOD THINNERS? (FOR EXAMPLE- COUMADIN, PLAVIX, AGGRENOX, PLATEL, PRADAXA, OR XARELTO) NO . WHEN WAS YOUR LAST DOSE? DATE: TIME: . NEUROLOGY: HAVE YOU FALLEN IN THE PAST 6 MONTHS? NO . ANY NEW EXTREMITY NUMBNESS OR WEAKNESS? NO . CARDIOLOGY: DO YOU HAVE A PACEMAKER OR DEFIBRILLATOR? NO . RESPIRATORY: HAVE YOU BEEN SICK IN THE PAST WEEK? NO . FEVER NO . FLU LIKE SYMPTOMS? NO . COUGH NO . INTEGUMENTARY: DO YOU HAVE ANY RASHES OR OPEN SORES? NO . ALLERGIC/IMMUNO: ARE YOU ALLERGIC TO SHELLFISH OR IV DYE? NO . ANY NEW ALLERGIES? NO . PSYCHIATRIC: DO YOU HAVE THOUGHTS OF HURTING YOURSELF OR SOMEONE ELSE? NO . ARE YOU ABUSED, NEGLECTED, OR IN AN UNSAFE ENVIRONMENT? NO . ENDOCRINOLOGY: ARE YOU DIABETIC? YES . OTHER: DO YOU NEED ANY PRESCRIPTIONS? NO . IF YES, PLEASE LIST: ____ . ANY NEW PROBLEMS WITH YOUR MEDICATIONS? NO . WHEN DID YOU LAST EAT? ____ . WHEN DID YOU LAST DRINK? ____ . WHAT DID YOU LAST DRINK? ____ . NAME OF PERSON DRIVING YOU HOME? ____ . DO YOU HAVE ANY OTHER QUESTIONS OR CONCERNS NO . VITAL SIGNS WT 243 LBS, HT 68", BMI 36.94 INDEX, BP 163/88 MM HG, HR 92 /MIN, RR 18 /MIN, TEMP 98.3 F, OXYGEN SAT % 93%, NA INITIALS SC 15:48. EXAMINATION : PATIENT IS ALERT O X 3 AND COOPERATIVE. PATIENT AMBULATES WITH A SLIGHT LIMP ON THE LEFT LEG. PATIENT'S RIGHT LEG IS WEAKER AT FLEXION AND EXTENSION COMPARED TO THE LEFT LEG. PATIENT HAS SOME TENDERNESS IN THE SACROILIAC AREA. MRI DONE ON 10/10/26 SHOWS A DISC BULGE AT L4-L5 AND L5-S1. ASSESSMENTS INTERVERTEBRAL DISC DISORDER WITH RADICULOPATHY OF LUMBAR REGION - M51.16 (PRIMARY) INTERVERTEBRAL DISC DISORDER WITH RADICULOPATHY OF LUMBOSACRAL REGION - M51.17 TREATMENT INTERVERTEBRAL DISC DISORDER WITH RADICULOPATHY OF LUMBAR REGION REFILL GABAPENTIN TABLET, 300 MG, 1 TABLET, ORALLY FOR PAIN, THREE TIMES DAILY MDD3, 30 DAY(S), 90, REFILLS 2 NOTES: WE DISCUSSED SEVERAL ISSUES WITH MR. QUEEN'S PAIN MANAGEMENT CASE. AT THIS TIME I WOULD LIKE THE PATIENT TO CONTINUE TO USE GABAPENTIN. PATIENT WILL SLOWLY INCREASE MEDICATION TO 3 TABLETS A DAY. PATIENT WAS ADVISED TO DECREASE MEDICATION IF HE HAD ANY ADVERSE SIDE EFFECTS. PATIENT WILL CONTINUE TO USE IBUPROFEN NEEDED FOR INFLAMMATION. I WOULD LIKE THE PATIENT TO START PHYSICAL THERAPY TO KEEP HIM MOBILE AND FUNCTIONAL. PATIENT REPORTS DOING PHYSICAL THERAPY IN THE PAST WITH GOOD RESULTS. MR. QUEEN REPORTS IT WAS EASIER FOR HIM TO DO EVERYDAY THINGS SUCH BEND OVER TO TIE HIS SHOES, SHOWER, AND DO HOUSEHOLD ACTIVITIES. PATIENT WILL RETURN TO THE CLINIC IN 2 MONTHS. INSTRUCTIONS WERE GIVEN, QUESTIONS WERE ANSWERED, PATIENT REPORTS UNDERSTANDING AND AGREES WITH THE PLAN. I, NATE PRINGLE, DOCUMENTED THE ABOVE INFORMATION ACTING A SCRIBE FOR DR. HAMILTON. I HAVE REVIEWED THE ABOVE DOCUMENT, WRITTEN BY NATE MEJIAS AND I VERIFY THAT IT IS ACCURATE. PROCEDURE CODES FA211 ESTABILISHED PATIENT [facility] FACILITY CHARGE G8427 DOC MEDS VERIFIED W/PT OR RE G8730 PAIN ASSESS POS TOOL F/U PLAN DOC DISPOSITION & COMMUNICATION FOLLOW UP 2 MONTHS ELECTRONICALLY SIGNED BY ISIAH HAMILTON MD ON 05/24/2017 AT 03:17 PM EDT DISCLAIMER : THIS IS A VISIT SUMMARY EXTRACTED FROM THE [employer] CHART. IT IS NOT A COPY OF THE [employer] PROGRESS NOTE. VALERIYD
== END ==
LOC: M PAIN 15:30
PROVIDERS: ATTEND Anesthesiology
DX: G89.29 Other chronic pain (principal); M51.16 Intervertebral disc disorders with radiculopathy, lumbar region; M51.17 Intervertebral disc disorders with radiculopathy, lumbosacral region; E11.9 Type 2 diabetes mellitus without complications; E78.5 Hyperlipidemia, unspecified; E03.9 Hypothyroidism, unspecified; I10 Essential (primary) hypertension; Z79.899 Other long term (current) drug therapy

== ENCOUNTER → 2017-06-12 | Outpatient (REF) | payer OTHER | LOC: M LAB REF 18:45 | PROVIDERS: ATTEND Physician Assistant | DX: R30.0 Dysuria (principal) ==

== ENCOUNTER 2017-06-19 05:52 | Emergency (ER) | payer OTHER ==
[~2017-06-19] VITALS: Ht 177.8 cm; Wt 109.1 kg
[2017-06-19] MEDS ORDERED: VALS1TAB49 PO (06:08)
[2017-06-19] MEDS ORDERED: METF500T13 PO (06:08)
[2017-06-19] MEDS ORDERED: METO37.5 PO (06:08)
[2017-06-19] MEDS ORDERED: TIZA4CAP3 PO (06:08)
[2017-06-19] MEDS ORDERED: GABA-282 PO (06:08)
[2017-06-19] MEDS ORDERED: LEVO25TA5 PO (06:08)
[2017-06-19] MEDS ORDERED: dexameTHASONE 20 MG/5 ML VIAL (J1100) IV ONE (06:15)
[2017-06-19 06:44] LABS: ABG BASE EXCESS -0.2 (-2.0-2.0); ABG HCO3 25.8 MEQ/L (22.0-26.0); ABG PARTIAL PRESSURE CO2 47.4 mmHg (35.0-45.0); ABG PARTIAL PRESSURE O2 76.1 mmHg (75.0-100.0); ABG STANDARD HCO3 24.2 MEQ/L (22.0-26.0); ABG TOTAL CO2 27.3 MEQ/L (23.0-31.0); ABG pH (ARTERIAL) 7.354 UNITS (7.350-7.450)
[2017-06-19] MEDS: IPRATROPIUM 0.5MG/ALBUTEROL 2.5MG INH SOL UD 3ML (DUONEB)(J7620) NEB SCH ×2 (06:44→08:41)
[2017-06-19 06:49] LABS: BASO % 0.3 % (0.0-1.0); EOS # 0.1 10^3/uL (0.0-0.50); EOS % 1.4 % (0.0-3.0); IMMATURE GRANULOCYTE % 0.5 % (0-0); LYMPH # 1.4 10^3/uL (1.5-4.5); LYMPH % 13.2 % (24.0-44.0); MEAN CORPUSCULAR VOLUME 88.4 fl (80.0-96.0); MONO # 0.8 10^3/uL (0.0-0.8); MONO % 7.6 % (0.0-5.0); NEUTROPHILS # 7.9 10^3/uL (1.8-7.7); PLATELET COUNT, AUTOMATED 196 10^3/uL (150-450); WHITE BLOOD COUNT 10.3 10^3/uL (4.0-10.0)
[2017-06-19 07:13] LABS: ANION GAP 8 MEQ/L (8-16); BLOOD UREA NITROGEN 15 MG/DL (7-18); CALCIUM LEVEL 8.9 MG/DL (8.8-10.2); CARBON DIOXIDE LEVEL 29 MEQ/L (21-32); CHLORIDE LEVEL 100 MEQ/L (98-107); GLOMERULAR FILTRATION RATE > 60.0 (>49); GLUCOSE, FASTING 183 MG/DL (80-110); POTASSIUM SERUM 3.2 MEQ/L (3.5-5.1); SODIUM LEVEL 137 MEQ/L (136-145)
[2017-06-19] MEDS ORDERED: ISOVUE-370 76% 100ML VIAL (Q9967) As Ordered ONE (07:29)
[2017-06-19] MEDS ORDERED: POTASSIUM CHLORIDE 10 MEQ SR TABLET PO ONE (07:30)
[2017-06-19 08:36] LABS: ALBUMIN 3.7 GM/DL (3.2-5.2); ALBUMIN/GLOBULIN RATIO 0.95 (1.00-1.93); ALKALINE PHOSPHATASE 95 U/L (45-117); ALT/SGPT 55 U/L (12-78); AST/SGOT 30 U/L (15-37); BILIRUBIN,DIRECT 0.3 MG/DL (0.0-0.2); BILIRUBIN,TOTAL 1.3 MG/DL (0.2-1.0); TOTAL PROTEIN 7.6 GM/DL (6.4-8.2)
--- NOTE | 2017-06-19 09:19 | REP ---
CT pulmonary angiogram: With IV contrast. History: Dyspnea. Comparison studies: Comparison chest CT study is from November 17, 2013, done without contrast. Contrast dose: 75 cc's of Isovue [address] technique: Helical scanning is acquired and overlapping 1.5 mm and contiguous 3 mm axial images are reformatted. In addition, a 3-D work station is deployed to generate thick slab maximum intensity projection images in sagittal and coronal imaging projections. CT pulmonary angiographic findings: There is good opacification of the pulmonary arterial tree and there is no CT evidence of pulmonary embolism. The thoracic aorta enhances homogeneously and is normal in course and caliber. No dissection or aneurysm is seen. There is fairly heavy left coronary artery vascular calcification. Incidental note is made of opaque gallstones in the dependent portion of the gallbladder. No hilar or mediastinal mass or adenopathy is observed. No pleural or pericardial effusion is seen. There is a granuloma noted in the right upper lobe which is unchanged. A second right upper lobe granuloma is seen more posteriorly. A granulomatous nodule is seen in the left lower lobe and another is seen in the right lower lobe. These are all stable from the 2014 prior study some are now densely calcified. No new pulmonary nodule is appreciated. There is minimal linear fibrosis in the left lower lobe. Bone window settings show no bony destructive lesion. Impression: 1. No CT evidence of pulmonary embolus. 2. Old granulomatous changes in the lung banks. 3. Cholelithiasis. Otherwise unremarkable. Signed by Vidal Juarez MD 06/19/2017 02:12 P
[2017-06-19] MEDS ORDERED: CIPR500T3 PO (09:45)
[2017-06-19] MEDS ORDERED: VALSART/HCTZ PO (09:45)
[2017-06-19] MEDS ORDERED: METF850T4 PO (09:45)
[2017-06-19] MEDS ORDERED: METO1TAB7 PO (09:45)
[2017-06-19] MEDS ORDERED: ATOR1TAB21 PO (09:45)
[2017-06-19] MEDS ORDERED: TIZA2TA PO (09:45)
--- NOTE | 2017-06-19 09:54 | REP ---
Chest x-ray: Two views. History: Dyspnea. Comparison study May 15, 2009. Also reviewed is a prior chest x-ray from July 25, 2008. Findings: Right hemidiaphragm remains somewhat elevated unchanged. There is a new nodular opacity projecting in the periphery of the right upper lobe measuring 0.8 cm which merits further evaluation. This is a new finding. There is mild benign pleural thickening on the right unchanged. Pleural angles are sharp. No infiltrate is seen. The heart is not enlarged. No significant bony abnormality is seen. Impression: 8 mm right upper lobe nodule. This is a new finding. Recommend chest CT study. Otherwise no active disease. Signed by Vidal Juarez MD 06/19/2017 02:12 P
[2017-06-19] MEDS ORDERED: LEVA1TAB2 PO (10:25)
[2017-06-19] MEDS ORDERED: VENTAER INH (10:25)
[2017-06-19 10:26] VITALS: BP 125/62
--- NOTE | 2017-06-21 09:56 | ED PDOC ---
Post-Departure Follow-Up radiology report faxed to Olivia Chavez MD Jun 21, 2017 09:56
== END 2017-06-19 10:35 | disposition home or self-care (01) ==
LOC: M ED 05:52
DX: J40 Bronchitis, not specified as acute or chronic (principal); E11.9 Type 2 diabetes mellitus without complications; I10 Essential (primary) hypertension; M54.9 Dorsalgia, unspecified; G89.29 Other chronic pain; Z79.84 Long term (current) use of oral hypoglycemic drugs; Z79.899 Other long term (current) drug therapy
CPT/HCPCS: 36600; 71020; 71275; 80048; 80076; 82803; 83605; 83690; 85025; 87040; 94640; 96374; 99284; J1100; Q9967

== ENCOUNTER → 2017-12-22 | Outpatient (CLI) | payer OTHER | LOC: M SMT 15:20 | DX: J98.11 Atelectasis (principal) ==

== ENCOUNTER 2017-12-29 13:28 | Emergency (ER) | payer OTHER | END 2017-12-29 14:35 | disposition home or self-care (01) | LOC: M ED 13:28 | DX: S60.022A Contusion of left index finger without damage to nail, initial encounter (principal); V43.52XA Car driver injured in collision with other type car in traffic accident, initial encounter; Y92.410 Unspecified street and highway as the place of occurrence of the external cause; Y93.89 Activity, other specified; Y99.9 Unspecified external cause status; I10 Essential (primary) hypertension; Z79.84 Long term (current) use of oral hypoglycemic drugs; Z79.899 Other long term (current) drug therapy | CPT/HCPCS: 73140 ==

== ENCOUNTER → 2018-11-11 | Outpatient (REF) | payer OTHER, BC ==
[~2018-11-11] MED LIST changes: +DOXY100C; -GABA-282 PO; +GABA-843 PO; +TIZA4CAP PO; -TIZA4CAP3 PO
[2018-11-11 14:51] LABS: FOLATE 22.3 NG/ML; RHEUMATOID FACTOR QUANT < 10.0 IU/ML (<15.0); TOTAL PROTEIN 7.6 GM/DL (6.4-8.2); VITAMIN B12 LEVEL 807 PG/ML
[2018-11-15 09:50] LABS: DRVV SCREEN 40.4 SEC
[2018-11-15 13:42] LABS: ALBUMIN 4.32 GM/DL (3.29-5.55); ALBUMIN % 56.9 % (55.8-66.1); ALPHA-2-GLOBULINS 0.93 GM/DL (0.42-0.99); ALPHA-2-GLOBULINS % 12.2 % (7.1-11.8); BETA-1-GLOBULINS 0.54 GM/DL (0.28-0.60); BETA-1-GLOBULINS % 7.1 % (4.7-7.2); BETA-2-GLOBULINS 0.44 GM/DL (0.19-0.55); BETA-2-GLOBULINS % 5.8 % (3.2-6.5); GAMMA GLOBULINS 1.06 GM/DL (0.65-1.58)
[2018-11-16 14:14] LABS: ANTINUCLEAR ANTIBODIES DIRECT Negative (Negative); VITAMIN B1 LEVEL WHOLE BLOOD 145.1 nmol/L (66.5-200.0); VITAMIN B6,PYRIDOXAL PHOSPHATE 9.1 ug/L (5.3-46.7); VITAMIN E(ALPHA TOCOPHEROL) 14.4 mg/L (9.0-29.0); VITAMIN E(GAMMA TOCOPHEROL) 2.4 mg/L (0.5-4.9)
== END ==
LOC: M LABNEURO 10:01
PROVIDERS: ATTEND Psychiatry & Neurology Neurology
DX: G62.9 Polyneuropathy, unspecified (principal)

== ENCOUNTER → 2019-08-15 | Outpatient (CLI) | payer BC ==
[~2019-08-15] MED LIST changes: -VALS1TAB49 PO; +VALS40TA9 PO
--- NOTE | 2019-08-17 23:04 | SLEEPHOME ---
DATE OF PROCEDURE: 08/15/2019 ORDERED BY: MOJGAN Garza Diagnostic home sleep testing was performed due to concern for the obstructive sleep apnea syndrome in this patient with a history excessive somnolence and nonrestorative sleep. For testing a nocturnal T3 respiratory monitoring device was used. Continuous record was made of pulse, oxygen saturation, airflow, chest, abdominal strain and body position. 9 hours and 59 minutes of data were reviewed. There were 7 hours and 54 minutes marked as time in bed. During the interval marked time in bed, there were 410 respiratory events identified of 10 seconds in duration or greater for a respiratory event index of 51.8. The events were primarily obstructive, though 47 central and mixed apneas were also identified. Baseline pulse rate 71 beats per minute, pulse rate ranged 59-90. Baseline saturation was 91%, saturations fell to 75%. Testing was performed in both supine and nonsupine positions. IMPRESSION: Abnormal home sleep testing with repetitive respiratory events and oxygen desaturations to 75% with a respiratory event index of 51 is consistent with severe obstructive sleep apnea syndrome. RECOMMENDATIONS: The patient should be encouraged to undergo a formal sleep evaluation at his earliest convenience.
== END ==
LOC: M SLEEP HO 11:25
PROVIDERS: ATTEND Nurse Practitioner Family
DX: G47.33 Obstructive sleep apnea (adult) (pediatric) (principal)

== ENCOUNTER → 2019-09-25 | Outpatient (CLI) | payer BC ==
--- NOTE | 2019-09-28 15:58 | SLEEPCENT ---
DATE OF PROCEDURE: 09/25/2019 Ordered by: CLAUDIO Garza Nocturnal polysomnography was performed for the titration of pressure therapy in this patient with a clinical diagnosis of obstructive sleep apnea syndrome supported by home testing revealing a respiratory event index of 51 with desaturations into the 70s. For testing, a [employer]Med AirFit F20 full face mask was used, 4 cm of water pressure were applied to the circuit and the lights were extinguished. 7 hours and 25 minutes of data were reviewed. There were 286 minutes of sleep identified. Sleep latency was normal at 9 minutes. REM sleep was delayed at 400 minutes. Sleep architecture remained quite fragmented. Overall sleep efficiency was 64.9%. The electrocardiogram showed a sinus rhythm with an average heart rate of 75 beats per minute. EEG showed some alpha intrusion into non-REM stages. Persistence of obstructive events prompted an increase in C-PAP pressure. Central apneas emerged complicating the attempt at titration. The patient had a period of wake after which pressure was reintroduced. An optimal C-PAP pressure was not clearly demonstrated. Improved sleep was seen on a C-PAP pressure of 15. Significant activity was also seen in the limb leads. Limb movement arousal index was 6.9. IMPRESSION Obstructive sleep apnea syndrome (G47.33) RECOMMENDATIONS Initiation of pressure therapy at 15 cm would be reasonable based on these findings, however an optimal pressure was not clearly identified. Close clinical followup is recommended and should the patient experience persistence of symptoms, referral back to the sleep disorder center for repeat titration and possibly bilevel titration may be necessary given the emergence of central apneas.
== END ==
LOC: M SLEEP 19:45
PROVIDERS: ATTEND Nurse Practitioner Family
DX: G47.33 Obstructive sleep apnea (adult) (pediatric) (principal)

== ENCOUNTER → 2022-01-26 | Outpatient (CLI) | payer MEDICARE ==
[~2022-01-26] MED LIST changes: -DOXY100C; +DOXY100C3; +GABA-282 PO; -GABA-843 PO
== END ==
LOC: M WUC 09:35
PROVIDERS: ATTEND Internal Medicine
DX: M54.9 Dorsalgia, unspecified (principal)

== ENCOUNTER → 2022-04-13 | Outpatient (CLI) | payer MEDICARE | LOC: M LABSMTC 09:38 | PROVIDERS: ATTEND Anesthesiology | DX: Z01.818 Encounter for other preprocedural examination (principal); Z11.52 Encounter for screening for COVID-19 ==

== ENCOUNTER 2022-04-16 06:52 | Day surgery (SDC) | payer MEDICARE ==
[~2022-04-16] VITALS: Ht 177.8 cm; Wt 110.6 kg
[~2022-04-16 06:52] MED LIST changes: +NS 1,000 ML IV ONE
[2022-04-16] MEDS ORDERED: METOPROLOL SUCC (TopROL XL) 50MG **XL** TAB PO ONE (07:15)
[2022-04-16] MEDS ORDERED: propofoL 200 MG/20 ML VIAL As Ordered ONE ×2 (08:13→09:10)
[2022-04-16 09:00] VITALS: BP 125/70
== END 2022-04-16 09:10 | disposition home or self-care (01) ==
LOC: M OPP 06:52
PROVIDERS: ATTEND Surgery
DX: Z86.010 Personal history of colon polyps (principal); D17.5 Benign lipomatous neoplasm of intra-abdominal organs; I10 Essential (primary) hypertension; E11.9 Type 2 diabetes mellitus without complications; E03.9 Hypothyroidism, unspecified; M19.90 Unspecified osteoarthritis, unspecified site; G47.33 Obstructive sleep apnea (adult) (pediatric); Z79.84 Long term (current) use of oral hypoglycemic drugs; Z79.890 Hormone replacement therapy; Z79.899 Other long term (current) drug therapy

== ENCOUNTER → 2022-10-09 | Outpatient (CLI) | payer MEDICARE ==
[~2022-10-09] MED LIST changes: -NS 1,000 ML IV ONE
[2022-10-09 13:29] LABS: ALBUMIN 3.9 G/DL (3.2-5.2); ALKALINE PHOSPHATASE 111 U/L (46-116); ALT/SGPT 32 U/L (7.0-40); AST/SGOT 27 U/L (<34); BLOOD UREA NITROGEN 18 MG/DL (9-23); CALCIUM LEVEL 9.4 MG/DL (8.3-10.6); CARBON DIOXIDE LEVEL 29 MMOL/L (20-31); CHLORIDE LEVEL 103 MMOL/L (98-107); CHOLESTEROL LEVEL 128 MG/DL (<200); CHOLESTEROL RISK RATIO 3.32 (<5); CREATININE FOR GFR 1.06 MG/DL (0.70-1.30); GLOMERULAR FILTRATION RATE > 60.0 (>49); GLUCOSE, FASTING 76 MG/DL (74-106); HDL CHOLESTEROL 38.5 MG/DL (>40); HEMOGLOBIN A1c 8.9 % (4.0-6.0); LDL CHOLESTEROL 65.9 MG/DL (<100); NON-HDL-C 90 MG/DL; POTASSIUM SERUM 4.3 MMOL/L (3.5-5.1); SODIUM LEVEL 139 MMOL/L (136-145); TOTAL PROTEIN 7.4 G/DL (5.7-8.2); TRIGLYCERIDES LEVEL 118 MG/DL (<150)
[2022-10-09 13:36] LABS: THYROID STIMULATING HORMONE 3.481 uIU/ML (0.55-4.78)
== END ==
LOC: M WUC 10:35
PROVIDERS: ATTEND Internal Medicine
DX: E78.5 Hyperlipidemia, unspecified (principal); E03.9 Hypothyroidism, unspecified; E11.9 Type 2 diabetes mellitus without complications

== ENCOUNTER → 2024-01-18 | Outpatient (CLI) | payer MEDICARE | LOC: M WUC 10:27 | PROVIDERS: ATTEND Physician Assistant | DX: R07.89 Other chest pain (principal); R06.00 Dyspnea, unspecified ==

== ENCOUNTER 2024-02-18 17:11 | Emergency (ER) | payer MEDICARE ==
[~2024-02-18] VITALS: Ht 172.7 cm; Wt 113.6 kg
[2024-02-18] MEDS: ASPIRIN 81MG CHEW TABLET PO ONE (17:50)
[2024-02-18] MEDS: NITROGLYCERIN 0.4MG SUBL TABLET SL STA ×3 (17:50→18:22)
[2024-02-18 17:55] LABS: BASO % 0.3 % (0.0-1.0); EOS # 0.2 10^3/uL (0.0-0.5); EOS % 2.7 % (0.0-3.0); HEMATOCRIT 36.2 % (42.0-52.0); HEMOGLOBIN 11.7 g/dl (13.5-17.5); LYMPH # 1.7 10^3/uL (1.5-5.0); LYMPH % 26.8 % (24.0-44.0); MEAN CORPUSCULAR HEMOGLOBIN 25.8 pg (27.0-33.0); MEAN CORPUSCULAR HGB CONC 32.3 g/dl (32.0-36.5); MEAN CORPUSCULAR VOLUME 79.9 fl (80.0-96.0); MONO # 0.5 10^3/uL (0.0-0.8); MONO % 7.9 % (2.0-8.0); NEUTROPHILS # 3.8 10^3/uL (1.5-8.5); PLATELET COUNT, AUTOMATED 256 10^3/uL (150-450); RED BLOOD COUNT 4.53 10^6/uL (4.30-6.10); WHITE BLOOD COUNT 6.2 10^3/uL (4.0-10.0)
[2024-02-18] MEDS ORDERED: NITROGLYCERIN/D5W 100MCG/ML 25 MG in IV 1 EA IV SCH (18:00)
[2024-02-18] MEDS ORDERED: HEPARIN 25,000 UNITS/250 ML D5W BAG (100 UNITS/ML) As Ordered ONE (18:04)
[2024-02-18 18:07] LABS: INR 1.04; PARTIAL THROMBOPLASTIN TIME 24.9 SECONDS (24.8-34.2); PROTHROMBIN TIME 13.3 SECONDS (12.5-14.5)
[2024-02-18] MEDS: HEPARIN SOD (PORCINE) 5000UNITS/ML 1ML VIAL/SYRINGE IV ONE (18:12)
[2024-02-18] MEDS: HEPARIN DRIP 25,000 UNITS in IV 1 EA IV SCH (18:15)
[2024-02-18 18:22] VITALS: BP 121/61
[2024-02-18 18:26] LABS: CPK CREATINE PHOSPHOKINASE 110 U/L (46-171)
[2024-02-18 18:51] LABS: ALBUMIN 3.7 G/DL (3.2-5.2); ALKALINE PHOSPHATASE 107 U/L (46-116); ALT/SGPT 29 U/L (7.0-40); AST/SGOT 15 U/L (<34); BILIRUBIN,DIRECT 0.4 MG/DL (<0.4); BILIRUBIN,TOTAL 1.6 MG/DL (0.3-1.2); BLOOD UREA NITROGEN 15 MG/DL (9-23); CALCIUM LEVEL 9.5 MG/DL (8.3-10.6); CARBON DIOXIDE LEVEL 25 MMOL/L (20-31); CHLORIDE LEVEL 102 MMOL/L (98-107); CK-MB VALUE MASS 3.8 NG/ML (<3.6); CREATININE FOR GFR 0.79 MG/DL (0.70-1.30); FREE T4 1.09 NG/DL (0.89-1.76); GLOMERULAR FILTRATION RATE > 60.0 (>49); GLUCOSE, FASTING 407 MG/DL (74-106); MB/CK RELATIVE INDEX 3.45 (< OR =4); POTASSIUM SERUM 3.7 MMOL/L (3.5-5.1); SODIUM LEVEL 137 MMOL/L (136-145); THYROID STIMULATING HORMONE 3.277 uIU/ML (0.55-4.78); TOTAL PROTEIN 6.6 G/DL (5.7-8.2)
[2024-02-18] MEDS: MORPHINE 4 MG/ML 1ML VIAL IV ONE (18:52)
[2024-02-18] MEDS: HumuLIN R (REGULAR) INSULIN (NovoLIN R) **100U/ML** PER UNIT IV ONE (19:31)
[2024-02-18 20:05] VITALS: BP 142/65; TEMP 98.1; O2SAT 96
[2024-02-18 20:55] LABS: CK-MB VALUE MASS 10.4 NG/ML (<3.6)
[2024-02-18 20:56] LABS: MB/CK RELATIVE INDEX 7.48 (< OR =4)
== END 2024-02-18 20:14 | disposition short-term general hospital (02) ==
LOC: M ED 17:11
DX: I24.9 Acute ischemic heart disease, unspecified (principal); R00.0 Tachycardia, unspecified; E11.9 Type 2 diabetes mellitus without complications; E03.9 Hypothyroidism, unspecified; Z79.51 Long term (current) use of inhaled steroids; Z79.2 Long term (current) use of antibiotics; Z79.84 Long term (current) use of oral hypoglycemic drugs; Z79.899 Other long term (current) drug therapy
CPT/HCPCS: 71045; 80048; 80076; 82550; 82553; 84439; 84443; 84484; 85025; 85610; 85730; 93005; 93041; 94760; 96374; 96375; 99285; J1815

== ENCOUNTER 2024-11-11 00:56 | Emergency (ER) | payer MEDICARE ==
[~2024-11-11] VITALS: Ht 177.8 cm; Wt 104.2 kg
[~2024-11-11 00:56] MED LIST changes: +GABA-1172 PO; -GABA-282 PO
[2024-11-11 01:30] LABS: BASO % 0.4 % (0.0-1.0); EOS # 0.3 10^3/uL (0.0-0.5); EOS % 2.5 % (0.0-3.0); HEMATOCRIT 34.5 % (42.0-52.0); HEMOGLOBIN 11.1 g/dl (13.5-17.5); LYMPH # 1.6 10^3/uL (1.5-5.0); LYMPH % 16.1 % (24.0-44.0); MEAN CORPUSCULAR HEMOGLOBIN 26.2 pg (27.0-33.0); MEAN CORPUSCULAR HGB CONC 32.2 g/dl (32.0-36.5); MEAN CORPUSCULAR VOLUME 81.4 fl (80.0-96.0); MONO # 0.7 10^3/uL (0.0-0.8); MONO % 7.2 % (2.0-8.0); NEUTROPHILS # 7.4 10^3/uL (1.5-8.5); NEUTROPHILS % 73.6 % (36.0-66.0); PLATELET COUNT, AUTOMATED 253 10^3/uL (150-450); RED BLOOD COUNT 4.24 10^6/uL (4.30-6.10)
[2024-11-11 01:31] LABS: KETONE, URINE AUTO RFX NEGATIVE (NEGATIVE); LEUKOCYTE ESTERASE UR AUTO RFX NEGATIVE (NEGATIVE); MUCUS, URINE RFX SMALL (NEGATIVE); NITRITE, URINE AUTO RFX NEGATIVE (NEGATIVE); RBC, URINE AUTO RFX 48 /HPF (0-3); SQUAM EPITHELIAL CELL UR AURFX 0 /HPF (0-6); WBC, URINE AUTO RFX 7 /HPF (0-3)
[2024-11-11 01:52] LABS: LIPASE 28 U/L (12-53)
[2024-11-11 01:54] LABS: ALBUMIN 3.4 G/DL (3.2-5.2); ALKALINE PHOSPHATASE 113 U/L (40-129); ALT/SGPT 12 U/L (7.0-40); AST/SGOT 10 U/L (<34); BILIRUBIN,DIRECT 0.2 MG/DL (<0.4); BILIRUBIN,TOTAL 0.7 MG/DL (0.3-1.2); BLOOD UREA NITROGEN 22 MG/DL (9-23); CALCIUM LEVEL 8.9 MG/DL (8.3-10.6); CARBON DIOXIDE LEVEL 25 MMOL/L (20-31); CHLORIDE LEVEL 103 MMOL/L (98-107); CREATININE FOR GFR 1.24 MG/DL (0.70-1.30); GLOMERULAR FILTRATION RATE > 60.0 (>49); GLUCOSE, FASTING 224 MG/DL (74-106); POTASSIUM SERUM 4.4 MMOL/L (3.5-5.1); SODIUM LEVEL 137 MMOL/L (136-145); TOTAL PROTEIN 6.9 G/DL (5.7-8.2)
[2024-11-11] MEDS: KETOROLAC 30 MG/ML 1ML VIAL IV ONE (02:05)
[2024-11-11] MEDS ORDERED: FLOM0.4C39 PO (03:56)
[2024-11-11] MEDS ORDERED: KETO10TAB PO (03:56)
[2024-11-11 04:11] VITALS: BP 130/63; TEMP 97.9; O2SAT 95
[2024-11-11] MEDS: TAMSULOSIN 0.4 MG CAP PO ONE (04:14)
== END 2024-11-11 04:22 | disposition home or self-care (01) ==
LOC: M ED 00:56
DX: N20.1 Calculus of ureter (principal); I25.119 Atherosclerotic heart disease of native coronary artery with unspecified angina pectoris; E11.9 Type 2 diabetes mellitus without complications; Z79.2 Long term (current) use of antibiotics; Z79.51 Long term (current) use of inhaled steroids; Z79.84 Long term (current) use of oral hypoglycemic drugs; Z79.899 Other long term (current) drug therapy
CPT/HCPCS: 74176; 80048; 80076; 81001; 83690; 85025; 96374; 99284; J1885

== ENCOUNTER → 2024-11-13 | Outpatient (REF) | payer MEDICARE ==
[~2024-11-13] MED LIST changes: +FLOM0.4C39 PO; +KETO10TAB PO
== END ==
LOC: M LAB REF 15:52
PROVIDERS: ATTEND Emergency Medicine
DX: N20.0 Calculus of kidney (principal)

== ENCOUNTER 2025-07-27 10:25 | Emergency (ER) | payer MEDICARE ==
[~2025-07-27] VITALS: Ht 177.8 cm; Wt 102.7 kg
[~2025-07-27 10:25] MED LIST changes: -FLOM0.4C39 PO; +TAMS-18 PO
[2025-07-27 10:27] VITALS: BP 181/87; TEMP 98; O2SAT 96
[2025-07-27] MEDS ORDERED: ELIQ5TAB (10:39)
== END 2025-07-27 14:21 | disposition home or self-care (01) ==
LOC: M ED 10:25
DX: M25.511 Pain in right shoulder (principal); E03.9 Hypothyroidism, unspecified; I48.91 Unspecified atrial fibrillation; E11.9 Type 2 diabetes mellitus without complications; I10 Essential (primary) hypertension; E78.00 Pure hypercholesterolemia, unspecified; Z79.51 Long term (current) use of inhaled steroids; Z79.01 Long term (current) use of anticoagulants; Z79.2 Long term (current) use of antibiotics; Z79.84 Long term (current) use of oral hypoglycemic drugs; Z79.899 Other long term (current) drug therapy